=== PATIENT | female | born 1985 | race Caucasian/White ===

== ENCOUNTER → 2021-12-24 14:49 | Outpatient (BNVA) | payer MEDICAID, SELFPAY | PROVIDERS: Family Provider Nurse Practitioner Family; PCP Nurse Practitioner Family; Visit Provider Student in an Organized Health Care Education/Training Program | DX: M79.641 Pain in right hand (principal); R22.31 Localized swelling, mass and lump, right upper limb; M65.331 Trigger finger, right middle finger | CPT/HCPCS: 20600; 73130; 99203; J3301; J3490 ==

== ENCOUNTER 2025-04-17 10:15 | Emergency (ER) | payer MEDICAID, SELFPAY ==
--- NOTE | 2025-04-17 10:19 | CT_ITS ---
WS: [id number] CT HEAD NONCONTRAST HISTORY: Sudden onset headache TECHNIQUE: Contiguous axial imaging performed through the brain. Bone and soft tissue windows. Sagittal and coronal reformats reviewed. All CT scans at [facility] use at least one of these dose optimization techniques: automated exposure control; mA and/or kV adjustment per patient size (includes targeted exams where dose is matched to clinical indication); or iterative reconstruction. DLP: 1083.38 mGy.cm COMPARISON: None available. No acute intracranial hemorrhage, midline shift or mass effect. No significant atrophy. Mild ectopia of the cerebellar tonsils. There is mild crowding at the foramen magnum but no Chiari malformation. No infarct or edema. Ventricles: Normal size with no hydrocephalus. Paranasal sinuses: As visualized are clear. Mastoid air cells: Well pneumatized. Calvarium and scalp: Skull is intact with no soft tissue edema or swelling. CT/CT head wo con* [id number] IMPRESSION: 1. No acute intracranial hemorrhage or edema. 2. No prior infarct. 3. Mild ectopia of the cerebellar tonsils but no Chiari malformation.
[2025-04-17 10:20] VITALS: BP 120/73; PULSE 76; RESP 16; TEMP 37; O2SAT 98
--- NOTE | 2025-04-17 10:29 | W.ED.HA ---
HPI - Headache General: Chief Complaint: Headache Stated Complaint: Sudden onset Headache Time Seen by Provider: 04/17/25 10:19 Source: patient and EMS Mode of arrival: EMS Limitations: no limitations History of Present Illness: 39-year-old female states she has history of headaches in the past she states that 30 minutes ago she was at she started having a headache felt like her previous migraines she states she had felt lightheaded felt like she is going to pass out and had some dizziness. She denies any slurred speech denies any focal weaknesses headaches currently a 7 out of 10. Worse with lights Related Data Home Medications ?Medication ?Instructions ?Recorded ?Confirmed atorvastatin 20 mg tablet (Lipitor) 20 mg PO DAILY 03/11/25 03/11/25 baclofen 10 mg tablet 10 mg PO TID PRN 03/11/25 03/11/25 celecoxib 100 mg capsule 100 mg PO BID 03/11/25 03/11/25 cetirizine 10 mg tablet (All Day 10 mg PO DAILY PRN 03/11/25 03/11/25 Allergy (cetirizine)) dicyclomine 20 mg tablet 20 mg PO TID 03/11/25 03/11/25 famotidine 20 mg tablet 20 mg PO BID 03/11/25 03/11/25 fluticasone furoate 50 inhalation DAILY 03/11/25 03/11/25 mcg/actuation blister powder for inhalation gabapentin 600 mg tablet 600 mg PO TID 03/11/25 03/11/25 hydroxyzine pamoate 25 mg capsule 25 mg PO TID PRN 03/11/25 03/11/25 (Vistaril) lamotrigine 100 mg tablet,extended 100 mg PO DAILY PRN 03/11/25 03/11/25 release 24 hr norethindrone (contraceptive) 0.35 0.35 mg PO DAILY 03/11/25 03/11/25 mg tablet (Dee-BE) omeprazole 20 mg capsule,delayed 20 mg PO BID 03/11/25 03/11/25 release ondansetron HCl 4 mg tablet 4 mg PO Q8H 03/11/25 03/11/25 semaglutide 1 mg/dose (4 mg/3 mL) mg SUBCUT .Weekly 03/11/25 03/11/25 subcutaneous pen injector (Ozempic) topiramate 50 mg tablet 50 mg PO BID 03/11/25 03/11/25 Allergies Allergy/AdvReac Type Severity Reaction Status Date / Time codeine Allergy Mild VOMITING Verified 03/11/25 16:03 nitrofurantoin (From Allergy Mild BLISTERS Verified 03/11/25 16:03 Macrobid) Penicillins Allergy Mild THRUSH Verified 03/11/25 16:03 trazodone Allergy Mild MIGRAINES Verified 03/11/25 16:03 Review of Systems Neuro: Reports: headache(s) PFS ED PFSH: Medical History (Updated 04/17/25 @ 11:24 by Jose Saeed MD) Psychiatric care Trigger finger, right middle finger Finger mass, right Physical Exam Const: COMMON NORMALS: patient oriented x3 HENMT: COMMON NORMALS: normocephalic and atraumatic HEAD & SCALP: normocephalic and atraumatic Eye: COMMON NORMALS: Equal, round and reactive pupils present and EOMs intact bilaterally PUPIL: Yes Equal, round and reactive pupils present Neck/C-Spine: COMMON NORMALS: full ROM and supple Chest: COMMONS NORMALS: normal inspection of the chest and normal palpation of entire chest wall Resp: COMMON NORMALS: normal respiratory effort, No retractions, No use of accessory muscles and clear to auscultation bilaterally AUSCULTATION: clear to auscultation bilaterally Cardio: COMMON NORMALS: regular rate, regular rhythm and No murmurs present (Cardio) RATE: regular rate RHYTHM: regular rhythm GI: COMMON NORMALS: Normal to inspection, nondistended, normoactive bowel sounds present, Soft to palpation, non-tender and no masses PALPATION: Yes Soft to palpation Extremity: COMMON NORMALS: normal to inspection and full ROM Neuro: COMMON NORMALS: patient oriented x3, moves all extremities and no focal motor deficits Psych: COMMON NORMALS: mental status grossly normal, Normal thought process present and cooperative THOUGHT PROCESS: Normal thought process present Skin: COMMON NORMALS: no rashes or lesions noted and no wounds GENERAL SKIN EXAM: no rashes or lesions noted Course Vital Signs: Vital signs: Vital Signs Temperature 98.6 F 04/17/25 10:20 Pulse Rate 68 04/17/25 11:36 Respiratory Rate 16 04/17/25 11:36 Blood Pressure 109/68 04/17/25 11:36 Pulse Oximetry 100 04/17/25 11:36 Oxygen Delivery Me thod Room Air 04/17/25 10:20 MDM - Headache Medical Decision Making 39-year-old female presents here with a headache has history of migraine headaches. Differential includes CVA, intracerebral hemorrhage, migraine headache. Patient has no signs of CVA here she is ambulatory without difficulty no signs of posterior stroke. Head CT here showed no acute abnormality she has no signs of intracerebral hemorrhage her headache here is resolved along with her symptoms with Reglan Benadryl and Toradol. Likely a migraine. She is stable for discharge at this time follow-up PCP return if worsening. Lab Data Radiology Impressions Head CT 04/17/25 10:19 IMPRESSION: 1. No acute intracranial hemorrhage or edema. 2. No prior infarct. 3. Mild ectopia of the cerebellar tonsils but no Chiari malformation. All radiology interpretation(s) finalized by discharge Discharge Plan Discharge Patient Disposition: Home Clinical Impression: Headache Condition: Stable Prescriptions: No Action topiramate 50 mg tablet 50 mg PO BID gabapentin 600 mg tablet 600 mg PO TID atorvastatin [Lipitor] 20 mg tablet 20 mg PO DAILY cetirizine [All Day Allergy (cetirizine)] 10 mg tablet 10 mg PO DAILY PRN ondansetron HCl 4 mg tablet 4 mg PO Q8H famotidine 20 mg tablet 20 mg PO BID dicyclomine 20 mg tablet 20 mg PO TID baclofen 10 mg tablet 10 mg PO TID PRN omeprazole 20 mg capsule,delayed release(DR/EC) 20 mg PO BID norethindrone (contraceptive) [Dee-BE] 0.35 mg tablet 0.35 mg PO DAILY celecoxib 100 mg capsule 100 mg PO BID hydroxyzine pamoate [Vistaril] 25 mg capsule 25 mg PO TID PRN lamotrigine 100 mg tablet extended release 24hr 100 mg PO DAILY PRN fluticasone furoate 50 mcg/actuation blister with device inhalation DAILY Ozempic 1 mg/dose (4 mg/3 mL) pen injector SUBCUT .Weekly Discharge Orders: Discharge ED (Routine); Ordered 04/17/25 Ordered By: Jose Saeed Referrals: Andrew Fields, ASSEMBLY MACHINE TENDER [Primary Care Provider, Family Practice] - 4-7 days Discharge Diet: Advance as tolerated Discharge Activity: Resume usual activity Patient Instructions: General Headache (ED) Print Language: Tongan Coding Level of Care Code ED [employer] Applier for Dalila Llamas
[2025-04-17] MEDS: diphenhydrAMINE 50 mg/mL SDV 1mL IVP (10:30)
[2025-04-17] MEDS: metoclopramide 5 mg/mL SDV 2 mL 10 MG IVP (10:33)
[2025-04-17 11:03] VITALS: BP 120/73; O2SAT 98
[2025-04-17 11:36] VITALS: BP 109/68; PULSE 68; RESP 16; O2SAT 100
== END 2025-04-17 11:37 | disposition home or self-care (01) ==
PROVIDERS: Emergency Provider Emergency Medicine; PCP Nurse Practitioner Family
DX: R51.9 Headache, unspecified (principal)
CPT/HCPCS: 70450; 96374; 96375; 99285; J1200; J1885; J2765; J7030

== ENCOUNTER 2025-05-07 16:32 | Emergency (ER) | payer MEDICAID, SELFPAY ==
--- OUTSIDE RECORDS SUMMARY | 2023-11-17 10:00 | XMS_ITS ---
Author Organization [facility] Address [address] [place] [address] Care Team Providers Care Maintenance Painter Apprentice Name Role Phone ( [facility] ), PHYSICIAN NOT IDENTIFIED Primary Care Provider Unavailable Milan Chavez Unavailable [phone] DR. Iliana Acuña Unavailable [phone] REASON FOR VISIT PT has abcess in mouth was previously seen by medical and medical thinks it is caused by dental Social History Sex Assigned At : Social History Observation Description Sex Assigned At Female Encounters Encounter Location Date Provider Diagnosis (Do Not Use) [facility] [address] [facility] [place] [address] 11/17/2023 Iliana Acuña Plan Of Treatment No Information Progress Notes * Bozena BRYANTTrippB:[birth year] (39 yo F)Acc No.[id number]:11/17/2023 Patient: Jacquie Godfrey Provider: Amina Acuña DDS :1985 A ge:38 Y S ex:Female Date:11/17/2023 Address:[address] [facility] Pcp:PHYSICIAN NOT IDENTIFIED ( [facility] ) Subjective: * Chief Complaints: * P T has abcess in mouth was previously seen by medical and medical thinks it is caused by dental * Electronic signature of DR. Iliana Acuña on 05/07/2025 at 04:36 PM FOUNTAIN SUPERVISOR Sign off status: Pending * Provider: Amina Acuña DDS Date: 0 11/17/2023 Generated for Vanita irizarry/Félix/Aime on: 1 04:36 PM FOUNTAIN SUPERVISOR
--- OUTSIDE RECORDS SUMMARY | 2023-11-23 09:30 | XMS_ITS ---
Author Organization [facility] Address [address] [place] [address] Care Team Providers Care Consumer Sales Representative Name Role Phone ( [facility] ), PHYSICIAN NOT IDENTIFIED Primary Care Provider Unavailable Milan Chavez Unavailable [phone] DR. Iliana Acuña Unavailable [phone] REASON FOR VISIT PT has abcess in mouth was previously seen by medical and medical thinks it is caused by dental Social History Sex Assigned At : Social History Observation Description Sex Assigned At Female Encounters Encounter Location Date Provider Diagnosis (Do Not Use) [facility] [address] [address] 11/23/2023 Iliana Acuña Plan Of Treatment No Information Progress Notes * Bozena BRYANTTrippB:[birth year] (39 yo F)Acc No.[id number]:11/23/2023 Patient: Jacquie Godfrey Provider: Amina Acuña DDS :1985 A ge:38 Y S ex:Female Date:11/23/2023 Address:[address] [facility] Pcp:PHYSICIAN NOT IDENTIFIED ( [facility] ) Subjective: * Chief Complaints: * P T has abcess in mouth was previously seen by medical and medical thinks it is caused by dental Billing Information: * Procedure Codes: * Electronic signature of DR. Iliana Acuña on 05/07/2025 at 04:35 PM BREAST TRIMMER Sign off status: Pending * Provider: Amina Acuña DDS Date: 0 11/23/2023 Generated for Vanita irizarry/Félix/Aime on: 1 04:35 PM BREAST TRIMMER
--- OUTSIDE RECORDS SUMMARY | 2024-10-19 06:30 | XMS_ITS ---
Author Organization [facility] Address [address] [place] [address] Care Team Providers Care Proposal Consultant Name Role Phone ( [facility] ), PHYSICIAN NOT IDENTIFIED Primary Care Provider Unavailable Milan Chavez Unavailable [phone] Ronny Giron Unavailable [phone] REASON FOR VISIT X/Ref/ family emgy Social History Sex Assigned At : Social History Observation Description Sex Assigned At Female Encounters Encounter Location Date Provider Diagnosis [facility] [address] [place] [address] 10/19/2024 Ronny Giron Plan Of Treatment No Information Progress Notes * MANNYBozenaTrippB:[birth year] (39 yo F)Acc No.[id number]:10/19/2024 Patient: Jacquie Godfrey Provider: Vamshi Giron DDS :1985 A ge:39 Y S ex:Female Date:10/19/2024 Address:[address] [facility] Pcp:PHYSICIAN NOT IDENTIFIED ( [facility] ) Subjective: * Chief Complaints: * X /Ref/ family emgy Billing Information: * Procedure Codes: * Electronic signature of Mckinley Giron on 05/07/2025 at 04:36 PM SEISMOGRAPH CHIEF Sign off status: Pending * Provider: Vamshi Giron DDS Date: 0 10/19/2024 Generated for Printi ng/Faxing/eTransmitting on: 1 04:36 PM SEISMOGRAPH CHIEF
--- OUTSIDE RECORDS SUMMARY | 2024-12-20 02:30 | XMS_ITS ---
Author Organization [facility] Address [address] [place] [address] Care Team Providers Care Silk Brusher Name Role Phone ( [facility] ), PHYSICIAN NOT IDENTIFIED Primary Care Provider Unavailable Milan Chavez Unavailable [phone] Ronny Giron Unavailable [phone] REASON FOR VISIT ext - & 29/IV/ sick w fever Social History Sex Assigned At : Social History Observation Description Sex Assigned At Female Encounters Encounter Location Date Provider Diagnosis [facility] [address] [place] [address] 12/20/2024 Ronny Giron Plan Of Treatment No Information Progress Notes * Melina BRYANTB:[birth year] (39 yo F)Acc No.[id number]:12/20/2024 Patient: Jacquie Godfrey Provider: Vamshi Giron DDS :1985 A ge:39 Y S ex:Female Date:12/20/2024 Address:[address] Pcp:PHYSICIAN NOT IDENTIFIED ( [facility] ) Subjective: * Chief Complaints: * e xt 21-27 & 29/IV/ sick w fever * Electronic signature of Mckinley Giron on 05/07/2025 at 04:36 PM RUBBER COMPOUNDER SUPERVISOR Sign off status: Pending * Provider: Vamshi Giron DDS Date: 0 12/20/2024 Generated for Vanita irizarry/Félix/Maruitting on: 1 04:36 PM RUBBER COMPOUNDER SUPERVISOR
--- OUTSIDE RECORDS SUMMARY | 2025-01-17 10:00 | XMS_ITS ---
Author Organization [facility] Address [address] [place] [address] Care Team Providers Care Route Sales Delivery Drivers Supervisor Name Role Phone ( [facility] ), PHYSICIAN NOT IDENTIFIED Primary Care Provider Unavailable Milan Chavez Unavailable [phone] Ronny Giron Unavailable [phone] REASON FOR VISIT Pre-op check to make sure that recent COVID diagnosis has not hindered sedation requirements - Diagnosed 12/20/24 - R/S due to 's work schedule Social History Sex Assigned At : Social History Observation Description Sex Assigned At Female Encounters Encounter Location Date Provider Diagnosis 18 [facility] [address] [place] [address] 01/17/2025 Ronny Giron Plan Of Treatment No Information Progress Notes * Melina BRYANTB:[birth year] (39 yo F)Acc No.[id number]:01/17/2025 Patient: Jacquie Godfrey Provider: Vamshi Giron DDS :1985 A ge:39 Y S ex:Female Date:01/17/2025 Address:[address] [facility] Pcp:PHYSICIAN NOT IDENTIFIED ( [facility] ) Subjective: * Chief Complaints: * P re-op check to make sure that recent COVID diagnosis has not hindered sedation requirements - Diagnosed 12/20/24 - R/S due to 's work schedule * Electronic signature of Mckinley Giron on 05/07/2025 at 04:37 PM MAPPING TECHNICIAN Sign off status: Pending * Provider: Vamshi Giron DDS Date: 0 01/17/2025 Generated for Vanita Daley/Aime on: 1 04:37 PM MAPPING TECHNICIAN
--- OUTSIDE RECORDS SUMMARY | 2025-01-22 04:00 | XMS_ITS ---
Author Organization [facility] Address [address] [place] [address] Care Team Providers Care Silver Solution Mixer Name Role Phone ( [facility] ), PHYSICIAN NOT IDENTIFIED Primary Care Provider Unavailable Milan Chavez Unavailable [phone] Ronny Giron Unavailable [phone] REASON FOR VISIT 21,22,23,24,25,26,27,29with IV - R/S due to 's work schedule Social History Sex Assigned At : Social History Observation Description Sex Assigned At Female Encounters Encounter Location Date Provider Diagnosis 18[facility] [address] [place] [address] 01/22/2025 Ronny Giron Plan Of Treatment No Information Progress Notes * Bozena BRYANTaDOB:[birth year] (39 yo F)Acc No.[id number]:01/22/2025 Patient: Bozena Godfreya Provider: Vamshi Giron DDS :1985 A ge:39 Y S ex:Female Date:01/22/2025 Address:[address] [facility] Pcp:PHYSICIAN NOT IDENTIFIED ( [facility] ) Subjective: * Chief Complaints: * 2 1,22,23,24,25,26,27,29with IV - R/S due to 's work schedule * Electronic signature of Mckinley Giron on 05/07/2025 at 04:35 PM SOAP DRIER TENDER Sign off status: Pending * Provider: Vamshi Giron DDS Date: 0 01/22/2025 Generated for Vanita irizarry/Félix/Aime on: 1 04:35 PM SOAP DRIER TENDER
--- NOTE | 2025-05-07 16:19 | XRR_ITS ---
PROCEDURE INFORMATION: Exam: XR Left Knee Exam date and time: 05/07/2025 4:36 PM Age: 39 years old Clinical indication: Left knee pain TECHNIQUE: Imaging protocol: Radiologic exam of the left knee. Views: 3 views. COMPARISON: No relevant prior studies available. FINDINGS: Bones/joints: Small ossific fragment adjacent to the medial femoral condyle. Normal alignment. Patellar alignment appears appropriate on the provided views. No large joint effusion. Prior ligament reconstruction. Soft tissues: Normal. XR/XR knee LT 3V* [id number] IMPRESSION: 1. Patellar alignment appears appropriate on the provided views. 2. Small ossific fragment adjacent to the medial femoral condyle, age indeterminate and possibly related to prior injury or surgery.
[2025-05-07 16:33] VITALS: BP 127/74; PULSE 99; RESP 18; TEMP 36.6; O2SAT 98; BMI 30.1
--- OUTSIDE RECORDS SUMMARY | 2025-05-07 16:35 | XMS_ITS | Clinical Summary ---
Author Organization [facility] Address [address] Beard: Epic Prelude ADT [place] [address] Care Team Providers Care Gang Supervisor Pipe Lines Name Role Phone Tiffani Mcneill DO Primary Care Provider Allergies Active Allergy Reactions Criticality Noted Date Comments Codeine Nausea and Vomiting Low 03/21/2008 Nitrofurantoin Monohyd/M-Cryst Rash Low 03/21/2008 Olanzapine Other (See Comments),Rash Low 01/17/2024 Welts on legs Penicillins Other (See Comments) Low 03/21/2008 Says got thrush Trazodone Headache Low 03/21/2008 Medications diphenoxylate-atr opine 2.5 mg-0.025 mg tablet Take 1 Tablet by mouth every 6 hours. 024 Active ergocalciferol (VITAMIN D2) 50,000 unit capsule Take 50,000 Units by mouth. Active meclizine (ANTIVERT) 25 mg tablet Take 25 mg by mouth 3 times daily as needed for Dizziness. Active atorvastatin (LIPITOR) 20 mg tabletIndications :Mixed hyperlipidemia Take 1 Tablet (20 mg) by mouth daily. 100 Tablet 3 025 Active semaglutide (Ozempic) 1 mg/dose (4 mg/3 mL) Pen InjectorIndicatio ns:Type 2 diabetes mellitus with hyperglycemia, without long-term current use of insulin ([facility]) Inject 1 mg by subcutaneous injection every 7 days. 9 mL 3 025 Active Procto-Med HC 2.5 % cream with perineal applicator Insert by rectum 2 times daily as needed for Hemorrhoids. 28 Gram 1 025 Active levocetirizine (XYZAL) 5 mg tabletIndications :Allergic rhinitis, unspecified seasonality, unspecified trigger Take 1 Tablet (5 mg) by mouth late in the day. 30 Tablet 3 025 Active omeprazole (PriLOSEC) 20 mg Capsule, Delayed Release(E.C.) TAKE ONE CAPSULE BY MOUTH TWICE DAILY 180 Capsule 3 025 Active famotidine (PEPCID) 20 mg tablet TAKE ONE TABLET BY MOUTH TWICE DAILY 180 Tablet 3 025 Active hydrOXYzine HCL (ATARAX) 50 mg tabletIndications :Generalized anxiety disorder with panic attacks Take 1 Tablet (50 mg) by mouth 3 times daily as needed for Anxiety. 90 Tablet 2 025 Active dicyclomine (BENTYL) 20 mg tabletIndications :Irritable bowel syndrome, unspecified type Take 1 Tablet (20 mg) by mouth 4 times daily before meals and at bedtime. 120 Tablet 4 025 Active baclofen (LIORESAL) 10 mg tabletIndications :Trigeminal neuralgia of left side of face Take 1 Tablet (10 mg) by mouth 3 times daily as needed for Pain. 90 Tablet 3 025 Active ondansetron (ZOFRAN ODT) 4 mg Tablet, Rapid DissolveIndicatio ns:Nausea Take 1 Tablet (4 mg) by mouth every 8 hours as needed for Nausea/Emesis. Dissolve tablet on top of tongue, then swallow with saliva. 30 Tablet 1 025 Active lamoTRIgine (LaMICtal XR) 200 mg Extended Release 24 hour tabletIndications :Trigeminal neuralgia of left side of face Take 1 Tablet (200 mg) by mouth daily. 30 Tablet 3 025 Active albuterol sulfate 90 mcg/Actuation inhalerIndication s:Mild intermittent reactive airway disease without complication Take 2 Puffs by inhalation every 6 hours as needed for Shortness of Breath. 8.5 Gram 11 025 Active norethindrone, Contraceptive, 0.35 mg Tablet TAKE ONE TABLET BY MOUTH DAILY 28 Tablet 3 025 Active DULoxetine (CYMBALTA) 60 mg Capsule, Delayed Release(E.C.) TAKE ONE (1) CAPSULE BY MOUTH TWICE A DAY 60 Capsule 3 Active celecoxib (CeleBREX) 100 mg capsule Take 1 Capsule (100 mg) by mouth 2 times daily. 60 Capsule 3 Active topiramate (Topamax) 50 mg tablet Take 1 Tablet (50 mg) by mouth daily. 30 Tablet 4 Active gabapentin (NEURONTIN) 600 mg tablet TAKE ONE TABLET BY MOUTH THREE TIMES DAILY 90 Tablet 3 Active dapagliflozin propanediol (Farxiga) 5 mg Tablet TAKE 1 TABLET BY MOUTH DAILY 100 Tablet 3 025 Active gabapentin (NEURONTIN) 600 mg tablet Take 600 mg by mouth every 8 hours. 2024 Discontinued Farxiga 5 mg Tablet TAKE ONE TABLET BY MOUTH DAILY 30 Tablet 2 025 2024 Discontinued Active Problems Problem Noted Date Diagnosed Date Memory impairment 03/12/2025 Muscle twitching 03/12/2025 Reactive airway disease 03/12/2025 Warts of foot 03/12/2025 Other fatigue 03/12/2025 Trigeminal neuralgia of left side of face 2024 Anxiety 12/19/2024 Bipolar 1 disorder 12/19/2024 Fibromyalgia 12/19/2024 Insomnia 12/19/2024 Panic attacks 12/19/2024 Restless leg syndrome 12/19/2024 Snores 12/19/2024 Non-alcoholic fatty liver disease 07/02/2024 Type II diabetes mellitus 06/21/2024 Tear of medial meniscus of knee 08/26/2022 Chondromalacia of left patella 03/24/2020 Overview (12/19/2024): Added automatically from request for surgery Carpal tunnel syndrome, bilateral 03/04/2020 GERD (gastroesophageal reflux disease) 2 IUD complication 05/14/2010 Carpal tunnel syndrome 01/21/2010 Coccyx pain 01/16/2010 Sciatica 01/16/2010 MTHFR Mutation: Compound Heterozygote 03/28/2008 Depression with anxiety 03/21/2008 Resolved Problems Problem Noted Date Diagnosed Date Resolved Date Supervision of normal first 03/21/2008 11/21/2008 Encounters Date Type Department Care Team Description 05/07/2025 External Device Data STL ABSTRACTION Provider, Abstract 05/07/2025 Refill [facility] [address] [facility] [place] [address] Blue, August, INTAKE ASSESSOR 04/23/2025 External Device Data STL ABSTRACTION Provider, Abstract 04/23/2025 Telephone [facility] [address] [facility] [place] [address] Tiffani Mcneill, DO Medication Assistance 04/22/2025 Refill [facility] [address] [place] [address] Blue, August, INTAKE ASSESSOR 04/02/2025 External Device Data STL ABSTRACTION Provider, Abstract 04/01/2025 Orders Only [place] [address] [place] [address] August, INTAKE ASSESSOR Chronic midline low back pain without sciatica (Primary Dx) 03/30/2025 Refill [facility] [address] [facility] [place] [address] Blue, August, INTAKE ASSESSOR 03/22/2025 Orders Only [facility] [address] [facility] [place] [address] August, INTAKE ASSESSOR 03/19/2025 External Device Data STL ABSTRACTION Provider, Abstract 03/19/2025 External Device Data STL ABSTRACTION Provider, Abstract 03/13/2025 Results Follow-Up [facility] [address] [facility] [place] [address] Domenico Dias, INTAKE ASSESSOR CBC WITH DIFFERENTIAL, COMPREHENSIVE METABOLIC PANEL, PTT, Additional followed-up results: 2 03/13/2025 Telephone [facility] [address] [facility] [place] [address] Tiffani Mcneill, DO Paperwork 03/12/2025 2:40 PM WAX PATTERN REPAIRER Office Visit [facility] [address] [place] [address] Domenico Dias, INTAKE ASSESSOR Preoperative clearance (Primary Dx); Trigeminal neuralgia of left side of face; Type 2 diabetes mellitus with hyperglycemia, without long-term current use of insulin ([facility]); Memory impairment; Muscle twitching; Snores; Other fatigue; Screening mammography declined; Warts of foot; Mild intermittent reactive airway disease without complication 03/06/2025 External Device Data STL ABSTRACTION Provider, Abstract 03/05/2025 External Device Data STL ABSTRACTION Provider, Abstract 02/28/2025 2:40 PM CDT Office Visit [facility] [address] [place] [address] [place], INTAKE ASSESSOR Trigeminal neuralgia of left side of face (Primary Dx); Chest pain, unspecified type; TMJ (temporomandibular joint syndrome); Nausea; Generalized anxiety disorder with panic attacks 02/27/2025 1:40 PM CDT Office Visit [facility] [address] [place] [address] Domenico Dias, INTAKE ASSESSOR Trigeminal neuralgia of left side of face (Primary Dx) 02/27/2025 Nurse Triage [facility] [address] [place] [address] [place], INTAKE ASSESSOR 02/27/2025 External Device Data STL ABSTRACTION Provider, Abstract 02/26/2025 Orders Only [facility] [address] [place] [address] August, INTAKE ASSESSOR Irritable bowel syndrome, unspecified type (Primary Dx) 02/21/2025 Orders Only [facility] [address] [place] [address] [place], INTAKE ASSESSOR Generalized anxiety disorder with panic attacks (Primary Dx) 02/21/2025 Refill [facility] [address] [place] [address] Blue, August, INTAKE ASSESSOR 02/19/2025 External Device Data STL ABSTRACTION Provider, Abstract 02/19/2025 External Device Data STL ABSTRACTION Provider, Abstract 02/12/2025 Results Follow-Up [facility] [address] [place] [address] August, INTAKE ASSESSOR XR KNEE 3 VW LEFT 02/11/2025 3:20 PM CDT - 02/11/2025 11:59 PM CDT Hospital Encounter [facility] [address] [place] [address] August, INTAKE ASSESSOR Discharge Disposition: Home or Self Care 02/11/2025 1:20 PM CDT Office Visit [facility] [address] [place] [address] August, INTAKE ASSESSOR Bilateral hearing loss, unspecified hearing loss type (Primary Dx); Allergic rhinitis, unspecified seasonality, unspecified trigger; Chronic pain of left knee; Chronic left shoulder pain; Peripheral neuropathy associated with diabetes mellitus ([facility]) 02/06/2025 Orders Only [facility] [address] [place] [address] August, INTAKE ASSESSOR 02/05/2025 Orders Only [facility] [address] [place] [address] August, INTAKE ASSESSOR Chronic midline low back pain without sciatica (Primary Dx) from Last 3 Months Immunizations Immunization Administration Dates Next Due (ADACEL/BOOSTRIX)(10 YR UP) TDAP VACCINE, 0.5ML, IM 10/26/2013 (GARDASIL)(9-45 YRS) HUMAN PAPILLOMAVIRUS VACCINE, TYPES 6, 11, 16, 18, QUADRIVALENT (4VHPV), 3 DOSE, IM 12/03/2008 (M-M-R II/PRIORIX)(12 MO UP) MEASLES, MUMPS AND RUBELLA VIRUS VACCINE, 0.5 ML IM/SUBCUT 10/31/1987 (TDVAX)(7 YRS UP) TETANUS AN D DIPHTHERIA TOXOIDS, ADSORBED (2 LF OF TETANUS TOXOID AND 2 LF OF DIPHTHERIA TOXOID), 0.5ML (PF), IM 03/17/1999 Dt Dtp Dtap Vaccine 11/23/1988, 8,10/01/1986,11/27,10/02/1985 HIB, Unspecified Formulation 12/03/1986 HPV Vaccine Patient Supplied 01/27/2010 IPV/OPV 11/23/1988, 8,11/27/1985,09/27 Influenza Vaccine Split 3+ Yrs IM 03/21/2008 Family History Medical History Relation Name Comments Hypertension Father Cancer Maternal Grandmother Other Mother hx of pneumotho rax Breast Cancer Other 1 m cousin Cancer Other 2 m uncle liver Heart Disease Paternal Grandmother Healthy Sister Colon Cancer Neg Hx Relation Name Status Comments Father Alive Maternal Grandfather Maternal Grandmother Mother Alive Other 1 m cousin Alive Other 2 m uncle Alive Paternal Grandfather Paternal Grandmother Sister Alive Social History Tobacco Use Types Packs/Day Years Used Date Smoking Tobacco: Every Day Cigarettes Passive Smoke Exposure: Current Smokeless Tobacco: Never Tobacco Cessation:Ready to Q uit: No; Counseling Given: Yes Alcohol Use Standard Drinks/Week Comments No 0 (1 standard drink = 0.6 oz pur e alcohol) Comments Unknown Sex and Gender Information Value Date Recorded Sex Assigned at Not on file Legal Sex Female 9:16 AM WAX PATTERN REPAIRER Gender Identity Not on file Sexual Orientation Not on file Last Filed Vital Signs Vital Sign Reading Time Taken Comments Blood Pressure 128/72 03/12/2025 2:37 PM WAX PATTERN REPAIRER Pulse 82 03/12/2025 2:37 PM WAX PATTERN REPAIRER Temperature 37.1 C (98.8 F) 03/12/2025 2:37 PM WAX PATTERN REPAIRER Respiratory Rate 18 03/12/2025 2:37 PM WAX PATTERN REPAIRER Oxygen Saturation 98% 03/12/2025 2:37 PM WAX PATTERN REPAIRER Inhaled Oxygen Concentration - - Weight 83.2 kg (183 lb 6.4 oz) 03/12/2025 2:37 P M WAX PATTERN REPAIRER Height 165.1 cm (5' 5 ) 03/12/2025 2:37 PM WAX PATTERN REPAIRER Body Mass Index 30.52 03/12/2025 2:37 PM WAX PATTERN REPAIRER Plan of Treatment Upcoming Encounters Date Type Department Care Team (Late st Contact Info) Description 05/30/2025 3:00 PM WAX PATTERN REPAIRER Office Visit [facility] [place] [address] [facility] [place] [address] Blue, August, INTAKE ASSESSOR [address] [place] [address] 07/16/2025 11:30 AM CDT Appointment [facility] [address] [place] [address] Hector Trent MD [address] [place] [address] Health Maintenance Due Date Last Done Comments HEPATITIS B VACCINES (1 of 3 - 19+ 3-dose series) 2002 Preventative Visit-Managed Medicaid 2002 HPV/Cotest (21-29) 2004 HPV VACCINES (3 - 3-dose series) 04/21/2010 01/28/20 10, 12/03/2008 HPV/Cotest (30-65) 2013 BREAST CANCER SCREENING 2023 DTAP/TDAP/TD VACCINES (7 - T d or Tdap) 10/27/2023 10/26/2013, 03/17/1999, 11/23/1988, Additional history exists INFLUENZA VACCINE (#1) 2024 03/21/2008 DIABETES ANNUAL RETINAL EXAM 02/07/202506/2023, 02/08/2024, 02/08/2024, Additional history exists DIABETES HBA1C Q 6 MONTHS 06/20/20252024, 06/21/2024, 02/23/2021 LDL CHOLESTEROL ANNUAL 12/18/2025 12/18/2024 DIABETES ANNUAL FOOT EXAM 02/11/2026 02/11/2025 DIABETES MICROALBUMIN ANNUAL SCREEN 03/12/2026 03/12/2025 CERVICAL CANCER SCREENING 06/21/2027 PAP SMEAR 06/21/2027 06/21/2024, 03/20/2009 Procedures Procedure Name Priority Date/Time Associated Diagnosis Comments EKG 12-LEAD Routine 03/15/2025 3:49 PM WAX PATTERN REPAIRER MICROALBUMIN/CREATININ E RATIO, RANDOM UR Routine 03/12/2025 3:38 PM WAX PATTERN REPAIRER Type 2 diabetes mellitus with hyperglycemia, without long-term current use of insulin ([facility]) PROTIME-INR Routine 03/12/2025 3:32 PM WAX PATTERN REPAIRER Preoperative clearance PTT Routine 03/12/2025 3:32 PM WAX PATTERN REPAIRER Preoperative clearance COMPREHENSIVE METABOLIC PANEL Routine 03/12/2025 3:32 PM WAX PATTERN REPAIRER Preoperative clearance CBC WITH DIFFERENTIAL Routine 03/12/2025 3:32 PM WAX PATTERN REPAIRER Preoperative clearance XR KNEE 3 VW LEFT Routine 02/11/2025 3:3 4 PM CDT Chronic pain of left knee LIPID PANEL Routine 12/18/2024 2:27 PM CDT Type 2 diabetes mellitus with hyperglycemia, without long-term current use of insulin ([facility]) HEMOGLOBIN A1C Routine 12/18/2024 2:27 PM CDT Type 2 diabetes mellitus with hyperglycemia, without long-term current use of insulin ([facility]) from Last 3 Months or Most Recently Relevant to Health Maintenance Results * EKG 12-LEAD (03/15/2025 3:49 PM WAX PATTERN REPAIRER) August INTAKE ASSESSOR ECG ORDERABLES Final Result [facility] CLIA# [id number] [address] [place] [address] * MICROALBUMIN/CREATININE RATIO, RANDOM UR (03/12/2025 3:38 PM WAX PATTERN REPAIRER) CREATININE, URINE 101 20 - 275 mg/dL [facility] ALBUMIN, URINE 0.9 See Note: mg/dL [facility] Comment: Reference Range: Reference Range Not established ALB/CREAT RATIO, URINE 9 <30 mg/g creat [facility] Comment: The ADA defines abnormalities in albumin excretion as follows: Albuminuria Category Result (mg/g creatinine) Normal to Mildly increased <30 Moderately increased 30-299 Severely increased > OR = 300 The ADA recommends that at least two of three specimens collected within a 3-6 month period be abnormal before considering a patient to be within a diagnostic category. Test Performed at: [facility] [address] [place] [address] Moreno Sawyer MD Urine URINE SPECIMEN OBTAINED BY CLEAN CATCH PROCEDURE / Unknown 03/12/2025 3:38 PM WAX PATTERN REPAIRER 03/13/2025 5:48 AM WAX PATTERN REPAIRER Domenico Dias INTAKE ASSESSOR URINE ORDERABLES Final Res ult [facility] [phone] [facility] [address] [place] [address] * (ABNORMAL) CBC WITH DIFFERENTIAL (03/12/2025 3:32 PM WAX PATTERN REPAIRER) WBC 14.7(H) 3.8 - 10.8 Thousand/u L [facility] RBC 5.09 3.80 - 5.10 Million/uL [facility] HEMOGLOBIN 12.3 11.7 - 15.5 g/dL [facility] HEMATOCRIT 40.6 35.0 - 45.0 % [facility] MCV 79.8(L) 80.0 - 100.0 fL [facility] MCH 24.2(L) 27.0 - 33.0 pg [facility] MCHC 30.3(L) 32.0 - 36.0 g/dL [facility] Comment: For adults, a slight decrease in the calculated MCHC value (in the range of 30 to 32 g/dL) is most likely not clinically significant; however, it should be interpreted with caution in correlation with other red cell parameters and the patient's clinical condition. RDW 15.1(H) 11.0 - 15.0 % [facility] PLATELETS 345 140 - 400 Thousand/u L [facility] MPV 11.1 7.5 - 12.5 fL [facility] NEUTROPHIL ABSOLUTE 7,850(H) 1,500 - 7,800 cells/uL [facility] LYMPHOCYTE ABSOLUTE 5,821(H) 850 - 3,900 cells/uL [facility] MONOCYTE ABSOLUTE 647 200 - 950 cells/uL [facility] EOSINOPHIL ABSOLUTE 309 15 - 500 cells/uL [facility] BASOPHILS ABSOLUTE 74 0 - 200 cells/uL [facility] NEUTROPHIL 53.4 % [facility] LYMPHOCYTES 39.6 % [facility] MONOCYTE 4.4 % [facility] EOSINOPHILS 2.1 % [facility] BASOPHILS 0.5 % [facility] Comment: FASTING:UNKNOWN FASTING: UNKNOWN Test Performed at: [facility] [address] Moreno Sawyer MD Blood 03/12/2025 3:32 PM WAX PATTERN REPAIRER 03/12/2025 3:33 PM WAX PATTERN REPAIRER Domenico Dias [facility] HEMATOLOGY ORDERABLES Elina turner Result [facility] [phone] [address] * PTT (03/12/2025 3:32 PM WAX PATTERN REPAIRER) PTT 29 23 - 32 sec [facility] Comment: This test has not been validated for monitoring unfractionated heparin therapy. For testing that is validated for this type of therapy, please refer to the Heparin Anti-Xa assay (test code 00677). For additional information, please refer to http://education.[employer]/faq/FUT566 (This link is being provided for informational/educational purposes only.) Test Performed at: [facility] [address] [place] [phone] Moreno Sawyer MD Blood 03/12/2025 3:32 PM WAX PATTERN REPAIRER 03/12/2025 3:33 PM WAX PATTERN REPAIRER Domenico Dias [facility] HEMATOLOGY ORDERABLES Elina l Result Performing Organization Address [facility]/ZIP Co de Phone Number [facility] [phone] [facility] [address] [facility] [place] [address] * PROTIME-INR (03/12/2025 3:32 PM WAX PATTERN REPAIRER) INR 0.9 [facility] Comment: Reference Range 0.9-1.1 Moderate-intensity Warfarin Therapy 2.0-3.0 Higher-intensity Warfarin Therapy 3.0-4.0 PROTIME 9.8 9.0 - 11.5 sec [facility] Comment: For additional information, please refer to http://education.[employer]/faq/OCR079 (This link is being provided for informational/ educational purposes only.) FASTING:UNKNOWN FASTING: UNKNOWN Test Performed at: [facility] [address] [facility] CenterAqua[place] [address] Moreno Sawyer MD Blood 03/12/2025 3:32 PM WAX PATTERN REPAIRER 03/12/2025 3:33 PM WAX PATTERN REPAIRER Domenico Dias [facility] HEMATOLOGY ORDERABLES Elina l Result Performing Organization Address [facility]/ZIP Co de Phone Number [facility] [phone] [facility] [address] [place] [address] * (ABNORMAL) COMPREHENSIVE METABOLIC PANEL (03/12/2025 3:32 PM WAX PATTERN REPAIRER) GLUCOSE 104(H) 65 - 99 mg/dL [facility] Comment: Fasting reference interval For someone without known diabetes, a glucose value between 100 and 125 mg/dL is consistent with prediabetes and should be confirmed with a follow-up test. BUN 6(L) 7 - 25 mg/dL [facility] CREATININE 0.83 0.50 - 0.99 mg/dL [facility] GFR 91 > OR = 60 mL/min/1.7 3m2 [facility] BUN/CREAT RATIO 7 6 - 22 (calc) [facility] SODIUM 136 135 - 146 mmol/L [facility] POTASSIUM 3.9 3.5 - 5.3 mmol/L [facility] CHLORIDE 107 98 - 110 mmol/L [facility] CO2 22 20 - 32 mmol/L [facility] CALCIUM 9.4 8.6 - 10.2 mg/dL [facility] TOTAL PROTEIN 6.9 6.1 - 8.1 g/dL [facility] ALBUMIN 4.3 3.6 - 5.1 g/dL [facility] GLOBULIN 2.6 1.9 - 3.7 g/dL (calc) [facility] ALBUMIN/GLOBULIN RATIO 1.7 1.0 - 2.5 (calc) [facility] BILIRUBIN TOTAL 0.3 0.2 - 1.2 mg/dL [facility] ALKALINE PHOSPHATASE 84 31 - 125 U/L [facility] AST 13 10 - 30 U/L [facility] ALT 13 6 - 29 U/L [facility] Comment: FASTING:UNKNOWN FASTING: UNKNOWN Test Performed at: [facility] [address] Moreno Sawyer MD Blood 03/12/2025 3:32 PM WAX PATTERN REPAIRER 03/12/2025 3:33 PM WAX PATTERN REPAIRER us Domenico Dias INTAKE ASSESSOR CHEMISTRY ORDERABLES Final Result [facility] [phone] [facility] [id number] [place] [address] * XR KNEE 3 VW LEFT (02/11/2025 3:34 PM CDT) Anatomical Region Laterality Modality Lower Extremity Computed Radiogr aphy 02/11/2025 3:35 PM CDT Narrative 02/12/2025 7:06 AM CDT XR KNEE 3 VW LEFT 02/11/2025 3:34 PM Reason For Exam: See Diagnosis. Diagnosis: Chronic pain of left knee; Chronic pain of left knee. COMPARISON: None FINDINGS: Postsurgical changes of the femur trachea are noted. No acute fracture, subluxation, dislocation, or destructive osseous lesion is seen. Mild loss of joint space at the knee is noted. Procedure Note David Leiva MD - 02/12/2025 XR KNEE 3 VW LEFT 02/11/2025 3:34 PM Reason For Exam: See Diagnosis. Diagnosis: Chronic pain of left knee; Chronic pain of left knee. COMPARISON: None FINDINGS: Postsurgical changes of the femur trachea are noted. No acute fracture, subluxation, dislocation, or destructive osseous lesion is seen. Mild loss of joint space at the knee is noted. [facility] DIAGNOSTIC IMAGING ORDERABLES Fi nal Result * (ABNORMAL) HEMOGLOBIN A1C (12/18/2024 2:27 PM CDT) HEMOGLOBIN A1C 8.7(H) <5.7 % [facility] Comment: For someone without known diabetes, a hemoglobin A1c value of 6.5% or greater indicates that they may have diabetes and this should be confirmed with a follow-up test. For someone with known diabetes, a value <7% indicates that their diabetes is well controlled and a value greater than or equal to 7% indicates suboptimal control. A1c targets should be individualized based on duration of diabetes, age, comorbid conditions, and other considerations. Currently, no consensus exists regarding use of hemoglobin A1c for diagnosis of diabetes for children. ESTIMATED AVERAGE GLUCOSE (MG/DL) 203 mg/dL [facility] ESTIMATED AVERAGE GLUCOSE (MMOL/L) 11.2 mmol/L [facility] Comment: FASTING:UNKNOWN FASTING: UNKNOWN Test Performed at: [facility] [address] [place] [address] Moreno Sawyer MD Blood 12/18/2024 2:27 PM CDT 12/18/2024 2:28 PM CDT August Su [facility] CHEMISTRY ORDERABLES Final Resul t [facility] [phone] [facility] [address] [address] * (ABNORMAL) LIPID PANEL (12/18/2024 2:27 PM CDT) CHOLESTEROL 248(H) <200 mg/dL [facility] HDL 35(L) > OR = 50 mg/dL [facility] TRIGLYCERIDE 453(H) <150 mg/dL [facility] Comment: If a non-fasting specimen was collected, consider repeat triglyceride testing on a fasting specimen if clinically indicated. Jayy et al. J. of Clin. Lipidol. 2015;9:129-169. LDL CALCULATED mg/dL (calc) [facility] Comment: LDL cholesterol not calculated. Triglyceride levels greater than 400 mg/dL invalidate calculated LDL results. Reference range: <100 Desirable range <100 mg/dL for primary prevention; <70 mg/dL for patients with CHD or diabetic patients with > or = 2 CHD risk factors. LDL-C is now calculated using the Héctor-Duncan calculation, which is a validated novel method providing better accuracy than the Friedewald equation in the estimation of LDL-C. Héctor SS et al. SHANE. 2013;310(19): 3676-6868 (http://education.[employer]/faq/WKT610) CHOL/HDL RATIO 7.1(H) <5.0 (calc) [facility] NON-HDL CHOLESTEROL 213(H) <130 mg/dL (calc) [facility] Comment: For patients with diabetes plus 1 major ASCVD risk factor, treating to a non-HDL-C goal of <100 mg/dL (LDL-C of <70 mg/dL) is considered a therapeutic option. Test Performed at: [facility] [address] [address] Moreno Sawyer MD Blood 12/18/2024 2:27 PM CDT 12/18/2024 2:28 PM CDT August INTAKE ASSESSOR CHEMISTRY ORDERABLES Final Resul t [facility] [phone] [facility] [address] [place] [address] from Last 3 Months or Most Recently Relevant to Health Maintenance Insurance MEDICAID [place] Care Teams Gang Supervisor Pipe Lines Relationship Specialty Start Date End Date Tiffani Mcneill DO [address] [place] [address] PCP - General Family Practice 04/08/10
--- OUTSIDE RECORDS SUMMARY | 2025-05-07 16:35 | XMS_ITS | Encounter Summary ---
Author Organization [facility] Address [address] [place] [address] Phone Care Team Providers Care Sap Hana Developer Name Role Phone Darius Delgado Calista [facility] Primary Care Provider [phone] Eleanor Lugo [facility] Primary Care Provider [phone] Eleanor Lugo SCHOOL SECRETARY Unavailable [phone] Barrett Jamil MD Unavailable Leatha vailable William Guan SCHOOL SECRETARY Unavailable Zenobia Gonzalez AOP Unavailable Berta Blue [facility] Primary Care Provider [phone] Encounter Details Date Type Department Care Team (Late st Contact Info) Description 2022 Telephone [facility] [address] [address] Piper Sandra PA [address] [id number] Social History Tobacco Use Types Packs/Day Years Used Date Smoking Tobacco: Every Day Cigarettes 1 18 Smokeless Tobacco: Never Alcohol Use Standard Drinks/Week Comments Never 0 (1 standard drink = 0.6 oz pur e alcohol) Humiliation, Afraid, Rape, and Kick questionnair e Answer Date Recorded Within the last year, have y ou been afraid of your partner or ex-partner? No 2022 Within the last year, have y ou been humiliated or emotionally abused in other ways by your partner or ex-partner? No Within the last year, have y ou been kicked, hit, slapped, or otherwise physically hurt by your partner or ex-partner? No 2022 Within the last year, have y ou been raped or forced to have any kind of sexual activity by your partner or ex-partner? No 2022 AUDIT-C Answer Date Recorded Q1: How often do you have a drink containing alc ohol? Never 03/04/2020 Q2: How many drinks containi ng alcohol do you have on a typical day when you are drinking? Not asked 03/04/2020 Q3: How often do you have six or more drinks on one occasion? Never 03/04/2020 PHQ-2 Answer Date Recorded Patient Health Questionnaire-2 Score 2 2022 Comments No Sex and Gender Information Value Date Recorded Sex Assigned at Not on file Legal Sex Female 10:46 AM CDT Gender Identity Not on file Sexual Orientation Not on file documented as of this encounter Miscellaneous Notes * Telephone Encounter - LISSETTE Vallejo - 2022 9:49 AM SORTING LIVESTOCK WORKER Pt seen this morning and scheduled for scopes. ING LIVESTOCK WORKER * Telephone Encounter - Beatrice Larios - 2022 9:[address] report ING LIVESTOCK WORKER documented in this encounter Plan of Treatment Not on file documented as of this encounter Visit Diagnoses Not on filedocumented in this encounter Additional Health Concerns Infection Onset Date Last Indicated Resolved Time COVID-19 Rule-Out 07/13/2024 07/13/2024 07/13/2024 11:05 AM SORTING LIVESTOCK WORKER documented as of this encounter Care Teams Sap Hana Developer Relationship Specialty Start Date End Date Darius Delgado FNP [address] [facility] [place] [address] PCP - General Family Medicine 01/28/20 06/20/24 Eleanor Lugo FNP [address] [facility] [place] [address] PCP - General Family Medicine 06/21/24 01/13/25 Berta Blue FNP [address] [place] [address] PCP - General 01/14/25 Eleanor Lugo FNP [address] [facility] [place] [address] [facility] Med Onc Original Referring Provider Family Medicine 07/31/24 Barrett Jamil MD [address] [place] [address] Medical Oncologist Oncology 07/31/24 William Guan FNP [address] [address] Nurse Practitioner Oncology 07/31/24 Zenobia Gonzalez AOCNP [address] [address] Nurse Practitioner Oncology 07/31/24 documented as of this encounter
--- OUTSIDE RECORDS SUMMARY | 2025-05-07 16:35 | XMS_ITS | Encounter Summary ---
Author Organization [facility] Address [address] [place] [address] Phone Care Team Providers Care Slot Machine Key Person Name Role Phone Darius Delgado Calista [facility] Primary Care Provider Eleanor Lugo PRINT SHOP MANAGER Primary Care Provider [phone] Eleanor Lugo PRINT SHOP MANAGER Unavailable Barrett Jamil MD Unavailable Leatha vailable William Guan PRINT SHOP MANAGER Unavailable [phone] Zenobia Gonzalez AOP Unavailable [phone] Berta Blue PRINT SHOP MANAGER Primary Care Provider [phone] Reason for Visit * Reason Onset Date Comments speak with nurse regarding upcoming surgery 01/2020 Encounter Details Date Type Department Care Team (Late st Contact Info) Description 03/17/2020 Telephone [facility] [address] [id number] Andrew Thomas MD [address] [address] speak with nurse regarding upcoming surgery Social History Tobacco Use Types Packs/Day Years Used Date Smoking Tobacco: Every Day Cigarettes 1 18 Smokeless Tobacco: Never Alcohol Use Standard Drinks/Week Comments Never 0 (1 standard drink = 0.6 oz pur e alcohol) AUDIT-C Answer Date Recorded Q1: How often do you have a drink containing alc ohol? Never 03/04/2020 Q2: How many drinks containi ng alcohol do you have on a typical day when you are drinking? Not asked 03/04/2020 Q3: How often do you have six or more drinks on one occasion? Never 03/04/2020 Comments Unknown Sex and Gender Information Value Date Recorded Sex Assigned at Not on file Legal Sex Female 10:46 AM CDT Gender Identity Not on file Sexual Orientation Not on file documented as of this encounter Miscellaneous Notes * Telephone Encounter - Amelia Guevara - 03/24/2020 10:01 AM CST Patient calling to reschedule surgery. AL TEACHER * Telephone Encounter - Za Tena - 03/17/2020 3:27 PM CST Patient tested positive for COVID 03/14/20 in [place]. Her quarantine is over 03/23/20. Right now she just has sinus infection type symptoms. Runny nose, body aches, tired, no fever. She will call back when she is feeling better. AL TEACHER * Telephone Encounter - Nathalie Mccauley LPN - 03/17/2020 2:55 PM CST Routed to Venessa Tena/doctor of dental surgery AL TEACHER * Telephone Encounter - Kuldip Arango - 03/17/2020 8:40 AM CST Pt would like a call back from a nurse to discuss her upcoming surgery, she stated it is very important and no further information was given. AL TEACHER documented in this encounter Plan of Treatment Not on file documented as of this encounter Visit Diagnoses Not on filedocumented in this encounter Additional Health Concerns Infection Onset Date Last Indicated Resolved Time COVID-19 Rule-Out 07/13/2024 07/13/2024 07/13/2024 11:05 AM CHORAL TEACHER documented as of this encounter Care Teams Slot Machine Key Person Relationship Specialty Start Date End Date Darius Delgado, [facility] [address] [place] [address] PCP - General Family Medicine 01/28/20 06/20/24 Eleanor Lugo FNP [address] [facility] [place] [address] PCP - General Family Medicine 06/21/24 01/13/25August, [facility] [address] [facility] [place] [address] PCP - General 01/14/25 Eleanor Lugo FNP [address] [facility] [place] [address] [facility] Med Onc Original Referring Provider Family Medicine 07/31/24 Barrett Jamil MD [address] [facility] [place] [address] Medical Oncologist Oncology 07/31/24 William Guan PRINT SHOP MANAGER [address] [address] Nurse Practitioner Oncology 07/31/24 Zenobia Gonzalez AOCNP [address] [id number] Nurse Practitioner Oncology 07/31/24 documented as of this encounter
--- OUTSIDE RECORDS SUMMARY | 2025-05-07 16:35 | XMS_ITS | Encounter Summary ---
Author Organization [facility] Address [address] [place] [address] Phone Care Team Providers Care Equipment Maintenance Tech Name Role Phone Eleanor Lugo BROMINATION EQUIPMENT OPERATOR Unavailable Barrett Jamil MD Unavailable Leatha vailable William Guan BROMINATION EQUIPMENT OPERATOR Unavailable [phone] Zenobia Gonzalez [facility] Unavailable [phone] August BROMINATION EQUIPMENT OPERATOR Primary Care Provider [phone] Reason for Visit * Reason Comments Med Refill Encounter Details Date Type Department Care Team (Late st Contact Info) Description 04/13/2025 Refill [facility] [address] [place] [address] [facility] [address] [place] [address] Social History Tobacco Use Types Packs/Day Years Used Date Smoking Tobacco: Every Day Cigarettes 1 23.5 Started: 2004 Passive Smoke Exposure: Current Smokeless Tobacco: Never Comments:Started smoking at age 16 Alcohol Use Standard Drinks/Week Comments Never 0 (1 standard drink = 0.6 oz pur e alcohol) B1300 Health Literacy Answer Date Recor ded How often do you need to hav e someone help you when you read instructions, pamphlets, or other written material from your doctor or pharmacy? Sometimes 08/12/2024 [facility] Utilities Answer Date Recorded In the past 12 months has th e electric, gas, oil, or water [employer] threatened to shut off services in your home? No 08/12/2024 Humiliation, Afraid, Rape, and Kick questionnair e Answer Date Recorded Within the last year, have y ou been afraid of your partner or ex-partner? No 08/12/2024 Within the last year, have y ou been humiliated or emotionally abused in other ways by your partner or ex-partner? No Within the last year, have y ou been kicked, hit, slapped, or otherwise physically hurt by your partner or ex-partner? No 08/12/2024 Within the last year, have y ou been raped or forced to have any kind of sexual activity by your partner or ex-partner? No 08/12/2024 Social Connection and Isolation Panel Answer Date Recorded In a typical week, how many times do you talk on the phone with family, friends, or neighbors? Once a week 08/12/2024 How often do you get together with friends or re latives? Never 08/12/2024 How often do you attend restorationist or episcopalian serv ices? Never 08/12/2024 Do you belong to any clubs o r organizations such as restorationist groups, unions, fraternal or athletic groups, or school groups? No 08/12/2024 How often do you attend meet ings of the clubs or organizations you belong to? Never 08/12/2024 Are you , , di vorced, , never , or living with a partner? 08/12/2024 AUDIT-C Answer Date Recorded Q1: How often do you have a drink containing alcohol? Never 10/02/2024 Q2: How many drinks containi ng alcohol do you have on a typical day when you are drinking? Patient does not drink Q3: How often do you have si x or more drinks on one occasion? Never 10/02/2024 Overall Financial Resource Strain (CARDIA) Answe r Date Recorded How hard is it for you to pa y for the very basics like food, housing, medical care, and heating? Not very hard 08/12/2024 PHQ-2 Answer Date Recorded Patient Health Questionnaire-2 Score 0 10/03/2024 [facility] [place] of Occupat ional Health - Occupational Stress Questionnaire Answer Date Recorded Do you feel stress - tense, restless, nervous, or anxious, or unable to sleep at night because your mind is troubled all the time - these days? Very much 08/12/2024 Exercise Vital Sign Answer Date Recorde d On average, how many days pe r week do you engage in moderate to strenuous exercise (like a brisk walk)? 0 days 08/12/2024 On average, how many minutes do you engage in exercise at this level? 0 min 08/12/2024 Hunger Vital Sign Answer Date Recorded Within the past 12 months, y ou worried that your food would run out before you got the money to buy more. Sometimes true Within the past 12 months, t he food you bought just didn't last and you didn't have money to get more. Sometimes true 10/2024 PRAP[facility] - Transportation Answer Date Re corded In the past 12 months, has l ack of transportation kept you from medical appointments or from getting medications? Yes 10/2024 In the past 12 months, has l ack of transportation kept you from meetings, work, or from getting things needed for daily living? Yes 08/12/2024 Housing Stability Vital Sign Answer Albino e Recorded In the last 12 months, was t here a time when you were not able to pay the mortgage or rent on time? No 08/12/2024 In the past 12 months, how m any times have you moved where you were living? 1 08/12/2024 At any time in the past 12 m [facility], were you homeless or living in a jail (including now)? No 08/12/2024 [facility] - Mental Health Answer Date Recorde d Little interest or pleasure in doing things Not at all 10/03/2024 Feeling down, depressed, or hopeless Not at all 10/03/2024 Feeling of Stress Not on file 10/03/2024 Comments No Sex and Gender Information Value Date Recorded Sex Assigned at Not on file Legal Sex Female 10:46 AM CDT Gender Identity Not on file Sexual Orientation Not on file documented as of this encounter Plan of Treatment Not on file documented as of this encounter Visit Diagnoses Not on filedocumented in this encounter Care Teams Equipment Maintenance Tech Relationship Specialty Start Date End Date August, [facility] [address] [place] [id number] PCP - General 01/14/25 Eleanor Lugo FNP [address] [place] [address] [facility] Med Onc Original Referring Provider Family Medicine 07/31/24 Barrett Jamil MD [address] [place] [address] Medical Oncologist Oncology 07/31/24 William Guan FNP [address] [address] Nurse Practitioner Oncology 07/31/24 Zenobia Gonzalez AOCNP [address] [address] Nurse Practitioner Oncology 07/31/24 documented as of this encounter
--- OUTSIDE RECORDS SUMMARY | 2025-05-07 16:35 | XMS_ITS | Encounter Summary ---
Author Organization [facility] Address [address] [place] [address] Phone Care Team Providers Care Cloth Dyeing Range Tender Name Role Phone Eleanor Lugo PREPARATION PLANT REPAIRER Unavailable Barrett Jamil MD Unavailable Leatha vailable William Guan PREPARATION PLANT REPAIRER Unavailable [phone] Zenobia Gonzalez [facility] Unavailable [phone] August PREPARATION PLANT REPAIRER Primary Care Provider Reason for Visit * Reason Comments Med Refill Encounter Details Date Type Department Care Team (Late st Contact Info) Description 03/19/2025 Refill [facility] [address] [place] [address] Eleanor Lugo [facility] [address] [place] [address] Social History Tobacco Use Types Packs/Day Years [...] from your doctor or pharmacy? Sometimes 08/12/2024 [facility] Utilities Answer Date Recorded In the past 12 months has th e electric, gas, oil, or water [employer] threatened to shut off services in your [...] Never 08/12/2024 How often do you attend mandaen or druze serv ices? Never 08/12/2024 Do you belong to any clubs o r organizations such as mandaen groups, unions, fraternal or athletic groups, or [...] Recorded Patient Health Questionnaire-2 Score 0 10/03/2024 [facility] [place] of Occupat ional Health - Occupational Stress [...] any time in the past 12 m [facility], were you homeless or living in a intermediate (including now)? No 08/12/2024 [facility] - Mental Health Answer Date Recorde [...] on filedocumented in this encounter Care Teams Cloth Dyeing Range Tender Relationship Specialty Start Date End Date August, [facility] [address] [place] [id number] PCP - General 01/14/25 Eleanor Lugo FNP [address] [place] [address] [facility] Med Onc Original Referring Provider Family Medicine 07/31/24 Barrett Jamil MD [address] [place] [address] Medical Oncologist Oncology 07/31/24 William Guan FNP [address] [address] Nurse Practitioner Oncology 07/31/24 Zenobia Gonzalez AOCNP [address] [address] Nurse Practitioner Oncology 07/31/24 documented as of this encounter
--- OUTSIDE RECORDS SUMMARY | 2025-05-07 16:35 | XMS_ITS | Encounter Summary ---
Author Organization [facility] Address [address] [address] Phone Care Team Providers Care Croze Cutter Helper Name Role Phone Darius Delgado Calista [facility] Primary Care Provider Eleanor Lugo [facility] Primary Care Provider [phone] [facility] Unavailable [phone] Barrett Jamil MD Unavailable Leatha vailable William Guan HOSPITAL EDUCATOR Unavailable Zenobia Gonzalez [facility] Unavailable Berta Blue [facility] Primary Care Provider [phone] Reason for Visit * Reason Comments Med Refill Encounter Details Date Type Department Care Team (Late st Contact Info) Description 09/21/2022 Refill [facility] [address] [id number] Payton Rodriguez MD [address] [phone] Social History Tobacco Use Types Packs/Day Years Used Date Smoking Tobacco: Every Day Cigarettes 1 22 Smokeless Tobacco: Never Comments:Last used 06-08-22 Alcohol Use Standard Drinks/Week Comments Never 0 [...] Date Recorded Patient Health Questionnaire-2 Score 0 09/22/2022 Comments No Sex and Gender Information Value Date Recorded Sex Assigned at Not on file Legal Sex Female 10:46 AM CDT Gender Identity Not on file Sexual Orientation Not on file COVID-19 Exposure Response Date Recorded In the last 10 days, have yo u been in contact with someone who was confirmed or suspected to have Coronavirus/COVID-19? No / Unsure 09/22/2022 8:44 AM CDT documented as of this encounter Miscellaneous Notes * Telephone Encounter - Beatrice Larios - 09/21/2022 11:10 AM CDT Called patient and spoke with patients , he stated his was sleeping and would have her call our office. documented in this encounter Plan of Treatment Not on file documented as of this encounter Visit Diagnoses Not on filedocumented in this encounter Additional Health Concerns Infection Onset Date Last Indicated Resolved Time COVID-19 Rule-Out 07/13/2024 07/13/2024 07/13/2024 11:05 AM LIVE TRUCK TECHNICIAN documented as of this encounter Care Teams Croze Cutter Helper Relationship Specialty Start Date End Date Darius Delgado FNP [address] [facility] [place] [address] PCP - General Family Medicine 01/28/20 06/20/24 Eleanor Lugo FNP 14[address] [facility] [place] [address] PCP - General Family Medicine 06/21/24 01/13/25 Su BertaALAN [address] [place] [address] PCP - General 01/14/25 Eleanor Lugo FNP [address] [facility] [place] [address] [facility] Med Onc Original Referring Provider Family Medicine 07/31/24 Barrett Jamil MD [address] [facility] [place] [address] Medical Oncologist Oncology 07/31/24 William Guan FNP [address] [address] Nurse Practitioner Oncology 07/31/24 Zenobia Gonzalez AOCNP [address] [address] Nurse Practitioner Oncology 07/31/24 documented as of this encounter
--- OUTSIDE RECORDS SUMMARY | 2025-05-07 16:35 | XMS_ITS | Encounter Summary ---
Author Organization [facility] Address [address] [place] [address] Phone Care Team Providers Care Superintendent Seed Mill Name Role Phone Eleanor Lugo CRITICAL CARE NURSE PRACTITIONER Unavailable Barrett Jamil MD Unavailable Leatha vailable William Guan CRITICAL CARE NURSE PRACTITIONER Unavailable [phone] Zenobia Gonzalez [facility] Unavailable [phone] August CRITICAL CARE NURSE PRACTITIONER Primary Care Provider [phone] Reason for Visit * Reason Comments Med Refill Encounter Details Date Type Department Care Team (Late st Contact Info) Description 02/21/2025 Refill [facility] [place] [address] [place] [address] Eleanor Lugo [facility] [address] [place] [address] Social History Tobacco Use Types Packs/Day Years [...] from your doctor or pharmacy? Sometimes 08/12/2024 [facility] Utilities Answer Date Recorded In the past 12 months has th e electric, gas, oil, or water [employer] threatened to shut off services in your [...] Never 08/12/2024 How often do you attend shinto or anabaptist serv ices? Never 08/12/2024 Do you belong to any clubs o r organizations such as shinto groups, unions, fraternal or athletic groups, or [...] Recorded Patient Health Questionnaire-2 Score 0 10/03/2024 [facility] [place] of Occupat ional Health - Occupational Stress [...] any time in the past 12 m [facility], were you homeless or living in a fdc (including now)? No 08/12/2024 [facility] - Mental Health Answer Date Recorde [...] on filedocumented in this encounter Care Teams Superintendent Seed Mill Relationship Specialty Start Date End Date August, [facility] [address] [place] [id number] PCP - General 01/14/25 Eleanor Lugo FNP [address] [place] [address] [facility] Med Onc Original Referring Provider Family Medicine 07/31/24 Barrett Jamil MD [address] [place] [address] Medical Oncologist Oncology 07/31/24 William Guan FNP [address] [address] Nurse Practitioner Oncology 07/31/24 Zenobia Gonzalez AOCNP [address] [address] Nurse Practitioner Oncology 07/31/24 documented as of this encounter
--- OUTSIDE RECORDS SUMMARY | 2025-05-07 16:35 | XMS_ITS | Encounter Summary ---
Author Organization [facility] Address [address] [place] [address] Phone Care Team Providers Care Chief Optometry Service Name Role Phone Darius Delgado Calista [facility] Primary Care Provider Eleanor Lugo [facility] Primary Care Provider [phone] Eleanor Lugo SUSTAINABILITY MANAGER Unavailable [phone] Barrett Jamil MD Unavailable Leatha vailable William Guan SUSTAINABILITY MANAGER Unavailable Zenobia Gonzalez [facility] Unavailable [phone] Berta Blue [facility] Primary Care Provider [phone] Encounter Details Date Type Department Care Team (Late st Contact Info) Description 06/15/2022 Telephone [facility] [address] [address] Prabha Doran LPN [address] [place] [address] Social History Tobacco Use Types Packs/Day Years [...] suspected to have Coronavirus/COVID-19? No / Unsure 06/09/2022 11:23 AM CYCLE CONSULTANT documented as of this encounter Miscellaneous Notes * Telephone Encounter - Prabha Doran LPN - 06/15/2022 1:25 PM CST Patient is aware. E CONSULTANT * Telephone Encounter - ELSIE Interiano - 06/15/2022 12:12 PM CYCLE CONSULTANT She likely thrombosed an external hemorrhoid after internal banding, okay to use any OTC products to help alleviate symptoms, call if pain persists/increase and we will examine in the office and consider I&D if needed. E CONSULTANT * Telephone Encounter - Prabha Doran LPN - 06/15/2022 12:02 PM CST Patient had her scopes done 06/09/22 by DV along with hemorrhoid ligation. She called this morning toask some questions. She claims that ever since this hemorrhoid banding, she has developed another hemorrhoid externally. She claims it is very uncomfortable, and is it okay to put some hemorrhoidal cream with lidocaine on it. Yes she may try that, can use tucks pads, and they have a new hemorrhoidal cream she could also try. She was encouraged to call us back if she becomes anymore uncomfortable,starts bleeding, running a temp, or cannot safely pass a bowel movement. She verbalized she understood. She will call if this external hemorrhoid gets any worse. E CONSULTANT documented in this encounter Plan of Treatment Not on file documented as of this encounter Visit Diagnoses Not on filedocumented in this encounter Additional Health Concerns Infection Onset Date Last Indicated Resolved Time COVID-19 Rule-Out 07/13/2024 07/13/2024 07/13/2024 11:05 AM CYCLE CONSULTANT documented as of this encounter Care Teams Chief Optometry Service Relationship Specialty Start Date End Date Darius Delgado FNP [address] [place] [address] PCP - General Family Medicine 01/28/20 06/20/24 Eleanor Lugo FNP [address] [facility] [place] [address] PCP - General Family Medicine 06/21/24 01/13/25AugustALAN [address] [facility] [place] [address] PCP - General 01/14/25 Eleanor Lugo FNP [address] [facility] [place] [address] [facility] Med Onc Original Referring Provider Family Medicine 07/31/24 [place] [address] [place] [address] Medical Oncologist Oncology 07/31/24 William Guan FNP [address] [place] [address] Nurse Practitioner Oncology 07/31/24 Zenobia Gonzalez AOCNP [address] [address] Nurse Practitioner Oncology 07/31/24 documented as of this encounter
--- OUTSIDE RECORDS SUMMARY | 2025-05-07 16:35 | XMS_ITS | Encounter Summary ---
Author Organization [facility] Address [address] [place] [address] Phone Care Team Providers Care Mushroom Sorter Grader Name Role Phone Darius Delgado Calista [facility] Primary Care Provider Eleanor Lugo [facility] Primary Care Provider [phone] Eleanor Lugo [facility] Unavailable [phone] Barrett Jamil MD Unavailable Leatha vailable William Guan GLACIOLOGIST Unavailable Zenobia Gonzalez [facility] Unavailable Berta Blue [facility] Primary Care Provider [phone] Reason for Visit * Reason Onset Date Comments Medication Problem 08/26/2022 Encounter Details Date Type Department Care Team (Late st Contact Info) Description 08/26/2022 Telephone [facility] [address] [address] Prabha Doran LPN [address] [place] [address] Medication Problem Social History Tobacco Use Types Packs/Day Years [...] Date Recorded Patient Health Questionnaire-2 Score 0 08/26/2022 Comments No Sex and Gender Information Value Date Recorded Sex Assigned at Not on file Legal Sex Female 10:46 AM CDT Gender Identity Not on file Sexual Orientation Not on file COVID-19 Exposure Response Date Recorded In the last 10 days, have yo u been in contact with someone who was confirmed or suspected to have Coronavirus/COVID-19? No / Unsure 08/26/2022 7:55 AM CDT documented as of this encounter Miscellaneous Notes * Telephone Encounter - Prabha Doran LPN - 08/26/2022 4:59 PM CDT [place] Howard called us this afternoon, to let DV know that patients medicaid will not cover any hemorrhoidal suppositories. Medicaid will only cover the cream. Per AR, just have the patient sampler pickup some suppositories with a cortisone % (OTC). Anita was notified. documented in this encounter Plan of Treatment Not on file documented as of this encounter Visit Diagnoses Not on filedocumented in this encounter Additional Health Concerns Infection Onset Date Last Indicated Resolved Time COVID-19 Rule-Out 07/13/2024 07/13/2024 07/13/2024 11:05 AM EFFICIENCY MINER documented as of this encounter Care Teams Mushroom Sorter Grader Relationship Specialty Start Date End Date Darius Delgado FNP [address] [facility] [place] [address] PCP - General Family Medicine 01/28/20 06/20/24 Eleanor Lugo FNP 14[address] [facility] [place] [address] PCP - General Family Medicine 06/21/24 01/13/25 [facility] [address] [place] [address] PCP - General 01/14/25 Eleanor Lugo FNP [address] [facility] [place] [address] [facility] Med Onc Original Referring Provider Family Medicine 07/31/24 Barrett Jamil MD [address] [facility] [place] [address] Medical Oncologist Oncology 07/31/24 William Guan FNP [address] [address] Nurse Practitioner Oncology 07/31/24 Zenobia Gonzalez AOCNP [address] [address] Nurse Practitioner Oncology 07/31/24 documented as of this encounter
--- OUTSIDE RECORDS SUMMARY | 2025-05-07 16:36 | XMS_ITS | Encounter Summary ---
Author Organization [facility] Address [address] [place] [address] Care Team Providers Care Timber Poisoner Name Role Phone Tiffani Mcneill Calista [facility] Primary Care Provider [phone] Reason for Visit * Reason Comments Med Refill Encounter Details Date Type Department Care Team (Late st Contact Info) Description 05/07/2025 Refill [facility] [address] [place] [address] [facility] [address] [place] [address] Social History Tobacco Use Types Packs/Day Years Used Date Smoking Tobacco: Every Day Cigarettes Passive Smoke Exposure: Current Smokeless Tobacco: Never Alcohol Use Standard Drinks/Week Comments No 0 (1 standard drink = 0.6 oz pur e alcohol) Comments Unknown Sex and Gender Information Value Date Recorded Sex Assigned at Not on file Legal Sex Female 9:16 AM CONSULTING ACTUARY Gender Identity Not on file Sexual Orientation Not on file documented as of this encounter Miscellaneous Notes * Telephone Encounter - Beatrice Guan LPN - 05/07/2025 10:34 AM CST Medication Refill Request Last Fill Date:01/15/25 #30 with 2 RF Recent and Future Visits: Recent Visits Date Type Provider Dept 03/12/25 Office Visit Domenico Dias FNP [facility] 02/28/25 Office Visit Berta Blue CADD OPERATOR [facility] 10/22/25 Office Visit Larissa Minaekta Terrell, [facility] 02/11/25 Office Visit August, [facility] [place] 01/29/25 Office Visit August, [facility] [place] 01/14/25 Office Visit August, [facility] [place] 12/19/24 Office Visit Larissa Minaekta Ter[place], [facility] [place] 12/18/24 Office Visit August, [facility] [place] 12/11/24 Office Visit August, [facility] [place] Showing recent visits within past 540 days with a meds authorizing provider and meeting all other requirements Future Appointments Date Type Provider Dept 05/30/25 Appointment [facility], On license of [facility] Showing future appointments within next 365 days with a meds authorizing provider and meeting all other requirements Last Labs: Lab Results Component Value Date/Time HGBA1C 8.7 (H) 12/18/2024 02:27 PM LDLCALC 12/18/2024 02:27 PM Comment: LDL cholesterol not calculated. Triglyceride levels greater than 400 mg/dL invalidate calculated LDL results. Reference range: <100 Desirable range <100 mg/dL for primary prevention; <70 mg/dL for patients with CHD or diabetic patients with > or = 2 CHD risk factors. LDL-C is now calculated using the Stephanie calculation, which is a validated novel method providing better accuracy than the Friedewald equation in the estimation of LDL-C. Héctor HOGAN et al. SHANE. 2013;310(19): 2438-7455 (http://education.Gooddler.com/faq/DJQ710) CREAT 0.83 03/12/2025 03:32 PM Lab Results Component Value Date/Time CREAT 0.83 03/12/2025 03:32 PM BUN 6 (L) 03/12/2025 03:32 PM NA 136 03/12/2025 03:32 PM K 3.9 03/12/2025 03:32 PM CL 107 03/12/2025 03:32 PM CO2 22 03/12/2025 03:32 PM GFR 91 03/12/2025 03:32 PM Jacquie Bryant - 1985 Check and review of the [place] PDMP performed on 05/07/2025 at 10:34 AM was ULTING ACTUARY documented in this encounter Plan of Treatment Upcoming Encounters Date Type Department Care Team (Late st Contact Info) Description 05/30/2025 3:00 PM CONSULTING ACTUARY Office Visit [facility] [place] [address] [place] [address] [facility], CADD OPERATOR [address] [place] [address] 07/16/2025 11:30 AM CDT Appointment [facility] Neurology [facility] [address] [place] [address] Hector Trent MD [address] [place] [address] documented as of this encounter Visit Diagnoses Not on filedocumented in this encounter Care Teams Timber Poisoner Relationship Specialty Start Date End Date Tiffani Mcneill DO [address] [place] [address] PCP - General Family Practice 04/08/10 documented as of this encounter
--- OUTSIDE RECORDS SUMMARY | 2025-05-07 16:36 | XMS_ITS | Encounter Summary ---
Author Organization [facility] Address [address] [address] Phone Care Team Providers Care Newspaper Stuffer Name Role Phone Darius Delgado Calista [facility] Primary Care Provider Eleanor Lugo ASTRONOMY PROFESSOR Primary Care Provider [phone] Eleanor Lugo ASTRONOMY PROFESSOR Unavailable [phone] Barrett Jamil MD Unavailable Leatha vailable William Guan ASTRONOMY PROFESSOR Unavailable [phone] Zenobia Gonzalez AOP Unavailable [phone] Berta Blue ASTRONOMY PROFESSOR Primary Care Provider [phone] Encounter Details Date Type Department Care Team (Late st Contact Info) Description 07/17/2020 Orders Only [facility] [address] [address] Luis F Tena LPN [address] [address] Social History Tobacco Use Types Packs/Day Years [...] COVID-19 Rule-Out 07/13/2024 07/13/2024 07/13/2024 11:05 AM DRUG REGULATORY AFFAIRS SPECIALIST documented as of this encounter Care Teams Newspaper Stuffer Relationship Specialty Start Date End Date Darius Delgado FNP [address] [facility] [address] PCP - General Family Medicine 01/28/20 06/20/24 Eleanor Lugo FNP [address] [place] [address] PCP - General Family Medicine 06/21/24 01/13/25 Su BertaALAN [address] [place] [address] PCP - General 01/14/25 Eleanor Lugo FNP [address] [place] [address] [facility] Med Onc Original Referring Provider Family Medicine 07/31/24 Barrett Jamil MD [address] [place] [address] Medical Oncologist Oncology 07/31/24 William Guan FNP [address] [address] Nurse Practitioner Oncology 07/31/24 Zenobia Gonzalez AOCNP [facility] [address] [place] [address] Nurse Practitioner Oncology 07/31/24 documented as of this encounter
--- OUTSIDE RECORDS SUMMARY | 2025-05-07 16:36 | XMS_ITS | Patient Health Record ---
Author Organization [facility] Address [address] [place] [address] Care Team Providers Care Jewelry Inspector Name Role Phone ( [facility] ), PHYSICIAN NOT IDENTIFIED Primary Care Provider Unavailable Milan Chavez Unavailable [phone] Ronny Giron Unavailable [phone] Allergies Allergen (clinical drug ingredient) Drug/Non Drug Allergy documented on EMR Reaction Allergy Type Onset Date Status nitrofurantoin, macrocrystals / nitrofurantoin, monohydrate Macrobid Unknown Drug Allergy Active Xyphex Unknown Drug Allergy Active codeine Codeine Unknown Drug Allergy Active Penicillin Unknown Drug Allergy Active trazodone Trazodone Unknown Drug Allergy Active Reason For Referral No Information Medications Medication SIG (Take, Route, Frequency, Duration) Notes Start Date End Date Status Lexapro Active Rosuvastatin Calcium Active ZyPREXA Active Cymbalta Active Farxiga Active Gabapentin Active hydrOXYzine HCl Acti ve Albuterol Active EQ Acetaminophen 500 MG Tablet 2 tablet as needed Orally every 6 hrs; Duration: 7 days 03/19/2025 Active Ibuprofen 600 MG Tablet 1 tablet with fo od or milk as needed Orally every 6 hours; Duration: 7 days 03/19/2025 Active Clindamycin HCl 150 MG Capsule 1 capsule Orally every 6 hours; Duration: 7 days 03/19/2025 Active Chlorhexidine Gluconate 0.12 % Solution 15 mL swish for 30 seconds, then spit. Do not swallow. Mouth/Throat Twice a day; Duration: 10 days 03/19/2025 Active Social History Sex Assigned At : Social History Observation Description Sex Assigned At Female Problems Problem Type SNOMED Code ICD Code Onset Dates Problem Status W/U Status Risk Notes Problem Snores (95579600) Snores (R06.83) Active confir med Problem Fibromyalgia (759470670) Fibromyalgia (M79.7) Active confirmed Problem Posttraumatic stress disorder (44161321) PTSD (post-traumatic stress disorder) (F43.10) Active confirmed Problem Anxiety disorder (189269060) Anxiety disorder, unspecified (F41.9) Active confirmed Problem Trigeminal neuralgia (80922660) Trigeminal neuralgia (G50.0) Active confirmed Problem Other dental procedure status (Z98.818) Active confirmed Problem Panic disorder (924849549) Panic attacks (F41.0) Active confirmed Problem Restless legs (04574106) RLS (restless legs syndrome) (G25.81) Active confirmed Problem Bipolar I disorder (731714141) Bipolar disorder in full remission, most recent episode unspecified type (F31.70) Active confirmed Problem Depression (154093131) Depression, unspecified (F32.A) Active confirmed Problem MTHFR gene mutation (Z15.89) Active confirmed Problem 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 Problem Non-alcoholic fatty liver disease (6935876283) Non-alcoholic fatty liver disease (K76.0) Active confirmed Problem Type II diabetes mellitus without complication (004597306) Type 2 diabetes mellitus without complications, unspecified whether snf insulin use (E11.9) Active confirmed Vital Signs Heart Rate 71 /min 03/19/2025 Oximetry 99 % 03/19/2025 Height-cm 165.1 cm 03/19/2025 Blood pressure diastolic 75 mm Hg 03/19/2025 Weight-kg 84.37 kg 11/16/2024 Height 65 in 03/19/2025 Blood pressure systolic 124 mm Hg 03/19/2025 Weight 186 lbs 11/16/2024 BMI 30.95 kg/m2 11/16/2024 Encounters Encounter Location Date Provider Diagnosis [facility] [address] [place] [address] 11/16/2024 Ronny Giron [facility] [address] [address] 03/19/2025 Ronny Giron Other dental procedure status Z98.818 18th [facility] [address] [place] [address] 10/09/2024 Ronny Najera 18[facility] [address] [place] [address] 12/13/2024 Ronny Najera 18[facility] [address] [place] [address] 02/13/2025 Ronny Najera 18[facility] [address] [place] [address] 02/14/2025 Ronny Giron [address] [place] [address] Dental Clinic [address] [place] [address] 03/07/2025 Ronny Giron Assessments Encounter Date Diagnosis (ICD Code) Assessment Notes Treatment Notes Treatment Clinical Notes Section Notes 03/19/2025 Other dental procedure status (ICD-10 - Z98.818) Plan Of Treatment No Information Insurance Providers Payer Name Payer Address Payer Phone Subscriber Number Group Number Insured Name Patient Relationship to Insured Coverage Start Date Coverage End Date Medicaid Dental [address] [place] [address] [id number] Jacquie Bryant Self - patient is the insured Medicaid [address] [place] [phone] [id number] Jacquie Bryant Self - patient is the insured Medications Administered Medication Instructions Date of Administration Dosage Notes Dexmedetomidine 03/19/2025 10 ug Ondansetron 4mg/2ml 03/19/2025 4 mg Atropine Sulfate 03/19/2025 0.4 mg Clindamycin Phosphate 03/19/2025 600 mg dexAMETHasone Sodium Phosphate 03/19/2025 10 mg Ketorolac Tromethamine 03/19/2025 30 mg Midazolam 03/19/2025 5 mg Propofol 03/19/2025 130 mg Medical (General) History Medical History History ICD Code seasonal allergies bruise easily type II diabetes anxiety depression PTSD Bi Polar RLS (restless legs syndrome) G25.81 Non-alcoholic fatty liver disease K76.0 MTHFR Gene mutation TMJ dysfunction M26.609 Trigeminal neuralgia G50.0
--- OUTSIDE RECORDS SUMMARY | 2025-05-07 16:36 | XMS_ITS | Encounter Summary ---
[facility] Organization [facility] Address [address] [place] [address] Care Team Providers Care Pilot Plant Supervisor Name Role Phone Tiffani Mcneill DO Primary Care Provider Encounter Details Date Type Department Care Team (Latest Contact Info) Description 03/21/2008 Outpatient Historical [facility] SEARCH ENGINE MARKETING SPECIALIST, Family Medicine and Maternal- Medicine [address] [place] [address] Ronny Dai MD [address] [place] [address] Supervision of Normal First Social History Tobacco Use Types Packs/Day Years Used Date Smoking Tobacco: Every Day Cigarettes 0.5 7 Alcohol Use Standard Drinks/Week Comments No 0 (1 standard drink = 0.6 oz pur e alcohol) Comments Yes Sex and Gender Information Value Date Recorded Sex Assigned at Not on file Legal Sex Female 5:54 AM TOBACCO HANGER Gender Identity Not on file Sexual Orientation Not on file documented as of this encounter Plan of Treatment Not on file documented as of this encounter Procedures Procedure Name Priority Date/Time Associated Diagnosis Comments PROTEIN S ACTIVITY Routine 03/21/2008 12 :11 PM TOBACCO HANGER HEPATITIS C ANTIBODY Routine 03/21/2008 12:11 PM TOBACCO HANGER PROTEIN C ACTIVITY Routine 03/21/2008 12 :11 PM TOBACCO HANGER FIBRINOGEN QUANTITATIVE Routine 03/21/2008 12:11 PM TOBACCO HANGER ANTITHROMBIN III ACTIVITY Routine 03/21/2008 12:11 PM TOBACCO HANGER FACTOR VIII ASSAY Routine 03/21/2008 12: 11 PM TOBACCO HANGER GC, GENITAL Routine 03/21/2008 11:31 AM TOBACCO HANGER CHLAMYDIA, GENITAL Routine 03/21/2008 11 :31 AM TOBACCO HANGER PATHOLOGY Routine 03/21/2008 8:58 AM TOBACCO HANGER documented in this encounter Results * PROTEIN S ACTIVITY (03/21/2008 12:11 PM TOBACCO HANGER) [facility] PROTEIN S ACTIVITY 52 45 - 125 % [facility] Blood specimen (specimen) 03/21/2008 12:11 PM TOBACCO HANGER 03/21/2008 8:15 PM TOBACCO HANGER Ronny Dai MD CHEMISTRY ORDERABLES Final Res ult Performing Organization Address [facility] Phone Number INTERFACE SYSTEM Refer to clinic/hospital department [facility] CLIA# [id number] [address] [place] [address] * PROTEIN C ACTIVITY (03/21/2008 12:11 PM TOBACCO HANGER) [facility] PROTEIN C ACTIVITY 115 70 - 141 % [facility] Blood specimen (specimen) 03/21/2008 12:11 PM TOBACCO HANGER 03/21/2008 8:15 PM TOBACCO HANGER Ronny Dai MD HEMATOLOGY ORDERABLES Final Re sult Performing Organization Address [facility] de Phone Number INTERFACE SYSTEM Refer to clinic/hospital department [facility] CLIA# [id number] [address] [place] [address] * HEPATITIS C ANTIBODY (03/21/2008 12:11 PM TOBACCO HANGER) Pathologist [facility] HEPATITIS C AB Non-React mindi Non-React mindi [facility] Comment: HCV antibody testing is performed by enhanced chemiluminescence immunoassay methodology. The CDC recommends that positive HCV antibody tests be confirmed with either RIBA (recombinant immunoblot assay) or PCR testing. The same specimen can be used for RIBA testing and will be held for 7 days. Please contact the Chemistry laboratory if RIBA testing is desired. Blood specimen (specimen) 03/21/2008 12:11 PM TOBACCO HANGER 03/21/2008 8:15 PM TOBACCO HANGER Ronny Dai MD CHEMISTRY ORDERABLES Final Res ult Performing Organization Address [facility] Phone Number INTERFACE SYSTEM Refer to clinic/hospital department [facility] CLIA# [id number] [address] [place] [address] * FIBRINOGEN QUANTITATIVE (03/21/2008 12:11 PM TOBACCO HANGER) FIBRINOGEN 352 200 - 400 mg/dL [facility] Blood specimen (specimen) 03/21/2008 12:11 PM TOBACCO HANGER 03/21/2008 8:14 PM TOBACCO HANGER Ronny Dai MD HEMATOLOGY ORDERABLES Final Re sult Performing Organization Address [facility] Phone Number INTERFACE SYSTEM Refer to clinic/hospital department [facility] CLIA# [id number] [address] [place] [address] * FACTOR VIII ASSAY (03/21/2008 12:11 PM TOBACCO HANGER) FACTOR VIII ASSAY 97 50 - 150 %Activity [facility] Blood specimen (specimen) 03/21/2008 12:11 PM TOBACCO HANGER 03/21/2008 8:14 PM TOBACCO HANGER us Ronny Dai MD HEMATOLOGY ORDERABLES Final Re sult Performing Organization Address [facility] Phone Number INTERFACE SYSTEM Refer to clinic/hospital department [facility] CLIA# [id number] [address] [place] [address] * ANTITHROMBIN III ACTIVITY (03/21/2008 12:11 PM TOBACCO HANGER) ANTITHROMBIN III ACTIVITY 96 80 - 120 % [facility] Blood specimen (specimen) 03/21/2008 12:11 PM TOBACCO HANGER 03/21/2008 8:14 PM TOBACCO HANGER us Ronny Dai MD HEMATOLOGY ORDERABLES Final Re sult Performing Organization Address [facility] Co de Phone Number INTERFACE SYSTEM Refer to clinic/hospital department [facility] CLIA# [id number] [address] [place] [address] * GC DNA AMPLIFICATION (03/21/2008 11:31 AM TOBACCO HANGER) Pathologist [facility] FINAL REPORT DNA Amplification Assay: negative for Neisseria gonorrhoeae The [employer] CT/NG test by Polymerase Chain Reaction (PCR) is approved for testing only on endocervical and male urethral swab specimens and male urine. The use of specimens from any other body site has not been validated. Detection of Neisseria gonorrhoeae is dependent on the number of organisms present in the specimen. This may be affected by patient factors, stage of infection, specimen collection methods, transport, storage and processing procedures. INTERFACE SYSTEM Specimen from genital system (specimen) (Endocervical) 03/21/2008 11:31 AM TOBACCO HANGER 03/21/2008 8:47 PM TOBACCO HANGER us Ronny Dai MD MICROBIOLOGY - GENERAL ORDERAB LES Final Result Performing Organization Address [facility] Co de Phone Number INTERFACE SYSTEM Refer to clinic/hospital department * CHLAMYDIA DNA AMPLIFICATION (03/21/2008 11:31 AM TOBACCO HANGER) FINAL REPORT DNA Amplification Assay: negative for Chlamydia trachomatis --------- The [employer] CT/NG test by Polymerase Chain Reaction (PCR) is approved for testing only on endocervical and male urethral swab specimens and urine. The use of specimens from any other body site has not been validated. Dectection of Chlamadia trachomatis is dependent on the number of organisms present in the specimen. This may be affected by patient factors, stage of infection, specimen collection methods, transport, storage and processing procedures. INTERFACE SYSTEM Specimen from genital system (specimen) (Endocervical) 03/21/2008 11:31 AM TOBACCO HANGER 03/21/2008 8:47 PM TOBACCO HANGER us Ronny Dai MD MICROBIOLOGY - GENERAL ORDERAB LES Final Result INTERFACE SYSTEM Refer to clinic/hospital department * PATHOLOGY (03/21/2008 8:58 AM TOBACCO HANGER) PATHOLOGY/CY TOLOGY REPORT [facility] Anatomic Pathology Dept [address] [place] [id number] Patient: JACQUIE ROME Accn No: [id number] Collected: 03/21/2008 8:58:00 AM CYTOLOGY TRANSPORTATION DRIVER FINAL REPORT - - WELLNESS CONSULTANT PAP History Specimen Source: None Provided Last Pap Date: None Provided Specimen Adequacy Satisfactory for interpretation. The smear shows sufficient numbers of endocervical or metaplastic cells. Diagnosis NEGATIVE FOR INTRAEPITHELIAL LESION OR MALIGNANCY. (Previously noted as Within Normal Limits) Media Analyst MYESHA 03/28/08 Completed by: DMITRI CROFT(ASCP) (Electronically signed by) 03/28/08 Comment Routine follow-up is suggested. Important Info About Pap Smears HPV Testing off the Thin Prep vial can be done as a means of further evaluating a Thin Prep Report. For information about ordering the HPV test, phone Cytology at . Treatment or follow-up recommendations (if any) that are considered within this report are based upon general recommendations as contained in 2001 Consensus Guidelines For Cervical Cytological Abnormalities SHANE: August 30, 2001, and are provided as a general guideline rather than as a specific recommendation. Final decisions about the most appropriate treatment and follow-up should be made on an individualized basis by the treating physician in consultation with his/her patient. INTERFACE SYSTEM 03/21/2008 8:58 AM TOBACCO HANGER us Ronny Dai MD PATHOLOGY/CYTOLOGY ORDERABLES Edited INTERFACE SYSTEM Refer to clinic/hospital department documented in this encounter Visit Diagnoses Diagnosis Supervision of normal first documented in this encounter Care Teams Pilot Plant Supervisor Relationship Specialty Start Date End Date Tiffani Mcneill DO [address] [place] [address] PCP - General Family Practice 04/08/10 documented as of this encounter
--- OUTSIDE RECORDS SUMMARY | 2025-05-07 16:36 | XMS_ITS | Clinical Summary ---
Author Organization [facility] Address [address] [place] [address] Phone Care Team Providers Care Agricultural Produce Commission Agent Name Role Phone Sarah Lugom MILL ROLL REWINDER Unavailable [phone] Barrett Jamil MD Unavailable Leatha vailable William Guan MILL ROLL REWINDER Unavailable [phone] Zenobia Gonzalez AOP Unavailable [phone] Su Berta MILL ROLL REWINDER Primary Care Provider [phone] Allergies Active Allergy Reactions Criticality Noted Date Comments Codeine Nausea And Vomiting Low 03/21/2008 Nitrofurantoin Macrocrystal Other 04/02/2009 BLISTERS Nitrofurantoin Monohyd/M-Cryst Rash Low 03/21/2008 Olanzapine Rash,Other Low 01/17/2024 Welts on legs Penicillins Other Low 03/21/2008 MOUTH SORES/thrush Trazodone Headache 03/21/2008 MIGRAINES Medications DULoxetine (Cymbalta) [address] capsule Take 60 mg by mouth 2 (two) times a day. 02/25/20 20 Active cyclobenzaprine (Flexeril) 10 mg tablet Take 10 mg by mouth 2 (two) times a day if needed for muscle spasms. Active albuterol (Proventil;Ventoli n) 90 mcg/actuation inhaler Inhale 2 puffs every 6 (six) hours if needed for wheezing. Active acetaminophen-code ine (Tylenol #3) 300-30 mg tablet Take 1 tablet by mouth every 8 (eight) hours if needed for severe pain (7-10). Active meclizine (Antivert) 25 mg tablet Take 25 mg by mouth if needed for dizziness or nausea. 04/04/20 24 Active hydrOXYzine HCL (Atarax) 25 mg tablet Take 1 tablet by mouth 3 (three) times a day if needed for anxiety. 05/15/19 Active norethindrone (Micronor) 0.35 mg tabletIndications: Abnormal uterine bleeding Take 1 tablet (0.35 mg total) by mouth 1 (one) time each day. 28 tablet 12 07/14/19 25 026 Active pen needle, diabetic 31 gauge x 5/16 needleIndications: Type 2 diabetes mellitus without complication, without long-term current use of insulin ([facility]) Use to inject 1-4 times daily as directed. 100 each 07/31/19 25 026 Active topiramate 50 mg tablet Take 50 mg by mouth 2 (two) times a day. 60 tablet 08/01/19 25 Active glucose blood test strip Check blood sugars daily E11.9 100 each 08/28/19 25 026 Active lancets 33 gauge misc 1 each 1 (one) time each day. Check Blood sugars daily E11.9 100 each 08/28/19 25 Active omeprazole (PriLOSEC) [address] capsule Take 1 capsule (20 mg total) by mouth 2 (two) times a day. 60 capsule 08/30/19 25 Active famotidine (Pepcid) 20 mg tablet Take 1 tablet (20 mg total) by mouth 2 (two) times a day. 60 tablet 08/30/19 25 Active diclofenac (Voltaren) 1 % topical gelIndications:Acu te pain of left shoulder Apply 2 g topically 4 (four) times a day if needed (shoulder pain). Apply to affected joint 150 g 3 09/11/19 25 Active Additional Information Patient not taking.Reported on 11/12/2024 Farxiga 5 mgIndications:Type 2 diabetes mellitus without complication, without long-term current use of insulin ([facility]) Take 1 tablet by mouth once daily 30 tablet 2 10/03/19 25 Active celecoxib (CeleBREX) 100 mg capsule Take 1 capsule (100 mg total) by mouth 2 (two) times a day. 60 capsule 5 10/03/19 25 Active gabapentin (Neurontin) 600 mg tablet Take 1 tablet (600 mg total) by mouth 3 (three) times a day. 90 tablet 5 10/03/19 25 Active Ozempic 0.25 mg or 0.5 mg (2 mg/3 mL) pen injectorIndication s:Type 2 diabetes mellitus without complication, without long-term current use of insulin ([facility]) Inject 0.5 mg under the skin every 7 (seven) days. 3 mL 2 11/06/19 25 Active escitalopram (Lexapro) 20 mg tablet Take 20 mg by mouth 1 (one) time each day. 10/23/19 25 Active cetirizine (ZyrTEC) 10 mg tablet Take 1 tablet (10 mg total) by mouth 1 (one) time each day. 90 tablet 3 11/13/19 25 026 Active fluticasone (Flonase) 50 mcg/actuation nasal spray Administer 2 sprays into each nostril 1 (one) time each day. Shake gently. Before first use, prime pump. After use, clean tip and replace cap. 16 g 5 11/13/19 25 026 Active dicyclomine (Bentyl) 20 mg tabletIndications: Chronic diarrhea TAKE 1 TABLET BY MOUTH THREE TIMES DAILY 270 tablet 1 11/15/19 25 Active rosuvastatin (Crestor) 20 mg tabletIndications: Mixed hyperlipidemia Take 1 tablet (20 mg total) by mouth 1 (one) time each day. 30 tablet 01/15/20 25 Active Active Problems Problem Noted Date Diagnosed Date Patella, chondromalacia, left 08/31/2024 Leukocytosis 07/02/2024 Non-alcoholic fatty liver disease 07/02/2024 Type II diabetes mellitus 06/21/2024 Tear of medial meniscus of left knee, current Diarrhea 03/09/2024 Tear of medial meniscus of right knee, current 0 08/26/2022 Chondromalacia of right patella 08/26/2022 Chondromalacia of left patella 03/24/2020 Overview (03/24/2020): Added automatically from request for surgery [id number] Carpal tunnel syndrome, bilateral 03/04/2020 MTHFR mutation 03/28/2008 Fibromyalgia Depression Bipolar 1 disorder Anxiety GERD (gastroesophageal reflux disease) Overview (08/08/2020): was controlled well w/meds- out of pepcid Insomnia Panic attacks Snores Restless leg syndrome PTSD (post-traumatic stress disorder) Lumbar pain Resolved Problems Problem Noted Date Diagnosed Date Resolved Date Unspecified hemorrhoids 03/09/202406/09 Patellar instability of right knee 01/17/2024 06/21/2024 Tear of meniscus of right kn ee as current injury 09/20/2023 06/21/2024 Chronic pain of right knee 09/20/2023 0 06/21/2024 Bilateral carpal tunnel syndrome 08/26/2022 06/21/2024 Trigger middle finger of right hand 08/26/2022 06/21/2024 Ganglion, finger joint of right hand 08/26/2022 06/21/2024 LGI bleed 2022 06/21/2024 Overview (2022): Added automatically from request for surgery [id number] Change in stool 2022 06/21/2024 Overview (2022): Added automatically from request for surgery [id number] Epigastric pain 2022 06/21/2024 Overview (2022): Added automatically from request for surgery [id number] Incomplete tear of right rotator cuff 10/28/2020 06/21/2024 S/P left knee arthroscopy 10/28/2020 Lateral epicondylitis of right elbow 10/28/2020 06/21/2024 Nontraumatic incomplete tear of right rotator cuff 08/08/2020 06/21/2024 Fibroma of foot 08/08/2020 07/02/2024 Patellar tracking disorder of left knee 03/04/2020 06/21/2024 Patellar tracking disorder of right knee 03/04/2020 06/21/2024 Patella, chondromalacia, left 03/04/2020 06/21/2024 Patellar instability of left knee 03/04/2020 06/21/2024 Fracture of ankle 04/08/2013 06/21/2024 Overview (08/08/2020): left History of stomach ulcers 05/09/2012 History of kidney stones History of claustrophobia History of 2019 novel collado virus disease (COVID-19) 06/21/2024 Overview (08/08/2020): tested positive 03/14/20- symptoms until 03/21/20- sinus issues/lost of taste/smell- no chest congestion Frequent headaches Fracture of hand 06/21/2024 Overview (08/08/2020): age 1, unsure of which hand or digit Knee dislocation 06/21/2024 Overview (08/08/2020): left knee pain Motion sickness 06/21/2024 Numbness and tingling in both hands 06/21/2024 Patella fracture 06/21/2024 Overview (08/08/2020): left Wears dentures 06/21/2024 Overview (08/08/2020): full upper plate PONV (postoperative nausea and vomiting) 06/21/2024 Overview (08/08/2020): nausea /vomiting- with dental extractions Encounters Date Type Department Care Team Description 04/13/2025 [facility]ill [facility] [place] [address] [place] [address] Eleanor Lugo FNP 03/19/2025 [facility]ill [facility] [place] [address] [place] [address] Eleanor Lugo FNP 02/21/2025 Refill [facility] [place] [address] [place] [address] Eleanor Lugo FNP from Last 3 Months Immunizations Immunization Administration Dates Next Due DTP 11/23/1988,09/22/1987,10/01/1986 ,11/27/1985,10/02/1985 DTaP 11/23/1988,09/22/1987,10/01/1986 ,11/27/1985,10/02/1985 HPV, Quadrivalent 01/27/2010,12/03/2008 HiB 12/03/1986 Hib (PRP-T) 12/03/1986 IPV 11/23/1988,09/22/1987,11/27/1985 ,09/27/1985 Influenza TIV (IM) 03/21/2008 MMR 10/31/1987 OPV 11/23/1988,09/22/1987,11/27/1985 ,09/27/1985 Td 03/17/1999 Tdap 10/26/2013 Family History Medical History Relation Comments Colon cancer Cousin Cancer Father Hypertension Father Heart disease Maternal Grandmother Stroke Maternal Grandmother COPD Mother Heart disease Mother Lung disease Mother Miscarriages / Stillbirths Mother Alcohol abuse Other 1 Vision loss Other 2 Diabetes Neg Hx Malig Hyperthermia Neg Hx Pseudochol deficiency Neg Hx Relation Status Comments Cousin Alive Father unknown- rare ca ncer- limited family history Maternal Grandmother Mother Other 1 Other 2 Social History Tobacco Use Types Packs/Day Years Used Date Smoking Tobacco: Every Day Cigarettes 1 23.5 Started: 2004 Passive Smoke Exposure: Current Smokeless Tobacco: Never Tobacco Cessation:Ready to Q uit: Not Asked; Counseling Given: Not Answered Comments:Started smoking at age 16 Alcohol Use Standard Drinks/Week Comments Never 0 (1 standard drink = 0.6 oz pur e alcohol) B1300 Health Literacy Answer Date Recor ded How often do you need to hav e someone help you when you read instructions, pamphlets, or other written material from your doctor or pharmacy? Sometimes 08/12/2024 [place] Utilities Answer Date Recorded In the past 12 months has th e [employer], gas, oil, or water [employer] threatened to shut off services in your [...] How often do you attend shinto or church serv ices? Never 08/12/2024 Do you belong [...] Recorded Patient Health Questionnaire-2 Score 0 10/03/2024 [facility] [place] of Occupat ional Health - Occupational Stress [...] any time in the past 12 m [facility], were you homeless or living in a penitentiary (including now)? No 08/12/2024 [place] - Mental Health Answer Date Recorde d [...] Sign Reading Time Taken Comments Blood Pressure 120/86 11/12/2024 11:21 AM CDT Pulse 81 11/12/2024 11:21 AM CDT Temperature 36.3 C (97.4 F) 11/12/2024 11:21 AM CDT Respiratory Rate 18 11/12/2024 11:21 AM CDT Oxygen Saturation 100% 11/12/2024 11:21 AM CDT Inhaled Oxygen Concentration - - Weight 84.6 kg (186 lb 6.4 oz) 11/12/2024 11:21 AM CDT Height 165.1 cm (5' 5 ) 11/12/2024 11:21 AM CDT Body Mass Index 31.02 11/12/2024 11:21 AM CDT Plan of Treatment Health Maintenance Due Date Last Done Comments CT Colonography 1983 FIT-DNA 1983 FIT 1983 FOBT 1983 Sigmoidoscopy 1983 COVID-19 Vaccines (#1) 1988 Diabetes: Foot Exam 1993 Diabetes: Retinopathy Screening 1993 Varicella Vaccines (1 of 2 - 13+ 2-dose series) 1996 Hepatitis C Screening 2001 Social Drivers of Health (SDoH) 2001 Hepatitis A Vaccines (1 of 2 - Risk 2-dose series) 2002 Hepatitis B Vaccines (1 of 3 - 19+ 3-dose series) 2002 Pneumococcal Vaccines (1 of 2 - PCV) 2002 Zoster Vaccines (1 of 2) 2002 HPV Vaccines (3 - Risk 3-dose series) 05/29/2010 01/27/2010, 12/03/2008 Mammogram 2023 DTaP,Tdap,and Td Vaccines (7 - Td or Tdap) 10/27/2023 10/26/2013, 03/17/1999, 11/23/1988, Additional history exists Diabetes: Hemoglobin A1C 09/18/2024 06/21/2024, 02/06 Influenza Vaccine (#1) 2025 03/21/2008 Creatinine Level 08/27/2025 08/27/2024, , 06/21/2024, Additional history exists Potassium Level 08/27/2025 08/27/2024, 03/2 08/2024, 06/21/2024 Depression Screening 10/04/2025 10/03/2024 Colonoscopy 06/08/2029 06/08/2024, 02/0 05/2022, 01/01/2022 Colorectal Cancer Screening 06/08/2029 Gastroscopy (EGD) 06/08/2029 06/08/2024 RSV Vaccines (1 - 1-dose 75+ series) 2058 HIB Vaccines Completed 12/03/1986, 12/03/1986 MMR Vaccines Completed 10/31/1987 IPV Vaccines Completed 11/23/1988, 11/06, 09/22/1987, Additional history exists Pap Smear Discontinued 06/21/2024 Meningococcal B Vaccine Aged Out No l onger eligible based on patient's age to complete this topic Meningococcal Vaccine Aged Out No margarita luis eligible based on patient's age to complete this topic Rotavirus Vaccines Aged Out No longer eligible based on patient's age to complete this topic Medical Devices Implanted Type Area Skylights Assembler Device Identifier Shelf Expiration Date Model / Serial / Lot Gracilis Allograft 4 X 240mm - [id number] Implanted:Qty : 1 on 04/14/2020 by Andrew Thomas MD at [facility] Blood Bank Implant Left: Knee LIFNH 11/28/2024 [id number] / / [id number] Description:PURCHASED ON PO# [id number] Impl Sys Mpfl Acl [employer] - [id number] Implanted:Qty : 1 on 04/14/2020 by Andrew Thomas MD at [facility] Orthopedics Implant Left: Knee ARTHREX 01/06/2022 [id number] / / [id number] Description:PURCHASED ON PO# [id number] Implant System Mpfl - [id number] Implanted:Qty : 1 on 04/14/2020 by Andrew Thomas MD at [facility] Orthopedics Implant Left: Knee ARTHREX 01/07/2024 [id number] / / [id number] Description:PURCHASED ON PO# [id number] Procedures Procedure Name Priority Date/Time Associated Diagnosis Comments COMPREHENSIVE METABOLIC PANEL STAT 08/27/2024 8:55 AM CDT Leukocytosis, unspecified type Elevated lymphocytes PAP SMEAR Routine 06/21/2024 3:51 PM FUR WEIGHER Cervical cancer screening HEMOGLOBIN A1C Routine 06/21/2024 11:16 AM FUR WEIGHER Type 2 diabetes mellitus without complication, without long-term current use of insulin ([facility]) from Last 3 Months or Most Recently Relevant to Health Maintenance Results * (ABNORMAL) Comprehensive Metabolic Panel (08/27/2024 8:55 AM CDT) [facility] Glucose 268(H) 70 - 100 mg/dL LAB CHEMISTRY METHOD 08/27/2024 9:54 AM CDT [facility] BUN 7 7 - 17 mg/dL LAB CHEMISTRY METHOD 08/27/2024 9:54 AM CDT [facility] Creatinine 0.95 0.52 - 1.04 mg/dl LAB CHEMISTRY METHOD 08/27/2024 9:54 AM CDT [facility] BUN/Creatinine Ratio 7(L) 12 - 17 LAB CHEMISTRY METHOD 08/27/2024 9:54 AM CDT [facility] Sodium 135 135 - 145 mmol/L LAB CHEMISTRY METHOD 08/27/2024 9:54 AM CDT [facility] Potassium 3.6 3.6 - 5.0 mmol/L LAB CHEMISTRY METHOD 08/27/2024 9:54 AM CDT [facility] Chloride 107 101 - 111 mmol/L LAB CHEMISTRY METHOD 08/27/2024 9:54 AM CDT [facility] Total Carbon Dioxide 24 22 - 30 mmol/L LAB CHEMISTRY METHOD 08/27/2024 9:54 AM CDT [facility] Anion Gap 8(L) 9 - 17 mmol/L LAB CHEMISTRY METHOD 08/27/2024 9:54 AM CDT [facility] Calcium 9.6 8.2 - 10.2 mg/dL LAB CHEMISTRY METHOD 08/27/2024 9:54 AM CDT [facility] Total Protein, Serum 7.6 5.6 - 8.5 g/dL LAB CHEMISTRY METHOD 08/27/2024 9:54 AM CDT [facility] Albumin 3.7 3.5 - 5.2 g/dL LAB CHEMISTRY METHOD 08/27/2024 9:54 AM CDT [facility] GLOBULIN 3.9(H) 2.1 - 3.8 g/dL LAB CHEMISTRY METHOD 08/27/2024 9:54 AM CDT [facility] A/G Ratio 0.9(L) 1.4 - 1.7 LAB CHEMISTRY METHOD 08/27/2024 9:54 AM CDT [facility] Bilirubin, Total 0.4 0.1 - 1.3 mg/dL LAB CHEMISTRY METHOD 08/27/2024 9:54 AM CDT [facility] Alkaline Phosphatase 103 45 - 117 U/L LAB CHEMISTRY METHOD 08/27/2024 9:54 AM CDT [facility] ALT (SGPT) 28 11 - 58 U/L LAB CHEMISTRY METHOD 08/27/2024 9:54 AM CDT [facility] AST (SGOT) 20 9 - 55 U/L LAB CHEMISTRY METHOD 08/27/2024 9:54 AM CDT [facility] eGFR >60 >=60 mL/min/1. 73 m2 LAB CHEMISTRY METHOD 08/27/2024 9:54 AM CDT [facility] Blood Venous blood specimen / Unknown Venipuncture / Unknown 08/27/2024 8:55 AM CDT 08/27/2024 8:55 AM CDT us Barrett Hernandez MD LAB BLOOD ORDERABLES Final Result [facility] [address] [address] * Pap Smear (06/21/2024 3:51 PM FUR WEIGHER) Case Report Pap Test Case: [id number] Authorizing Provider: ALAN Benedict Collected: 06/21/2024 1551 Ordering Location: [facility] Received: 06/22/2024 0900 [place] First Screen: MARLENA Bhatti Specimen: Pap Test 07/02/2024 7:49 AM FUR WEIGHER [facility] General Categorization Negative for Intraepithelial Lesion or Malignancy 07/02/2024 7:49 AM FUR WEIGHER [facility] Interpretation Negative for intraepithelial lesion or malignancy 07/02/2024 7:49 AM FUR WEIGHER [facility] at 0749 FUR WEIGHER Specimen Adequacy Satisfactory for evaluation, endocervical/velazco sformation zone component present 07/02/2024 7:49 AM FUR WEIGHER [facility] LMP 06/11/2024 07/02/2024 7:49 AM FUR WEIGHER [facility] Swab Non-blood Collection / Unknown 06/21/2024 3:51 PM FUR WEIGHER 06/22/2024 9:00 AM FUR WEIGHER us Eleanor PHILLIPS LAB CYTOLOGY ORDERABLES Final Result [facility] [address] [address] * (ABNORMAL) Hemoglobin A1c (06/21/2024 11:16 AM FUR WEIGHER) Hemoglobin A1c 7.9(H) % 06/22/2024 7:57 AM FUR WEIGHER [facility] Estimated Average Glucose 180 mg/dL 06/22/2024 7:57 AM FUR WEIGHER [facility] Blood Venous blood specimen / Unknown Venipuncture / Unknown 06/21/2024 11:16 AM FUR WEIGHER 06/21/2024 3:48 PM FUR WEIGHER Narrative [facility] - 06/22/2024 7:57 AM FUR WEIGHER HgbA1C ranges recommended by the [place] Diabetes Association (ADA): >6.5% Diabetic 5.7-6.4% Pre-Diabetic <5.7% Non-Diabetic Eleanor Lugo [facility] LAB BLOOD ORDERABLES Final Re sult Performing Organization Address [facility] de Phone Number [facility] [address] [address] from Last 3 Months or Most Recently Relevant to Health Maintenance [facility] Advance Directives For more information, please contact: [phone] (7:30 AM - 5PM [facility]/[place], 7 days a week) * Full Code (Latest Code Status on File) Date Activated Date Inactivated Comments 10/20/2022 6:40 AM 10/20/2022 11:20 AM Care Teams Agricultural Produce Commission Agent Relationship Specialty Start Date End Date Berta Blue FNP [address] [place] [address] PCP - General 01/14/25 Eleanor Lugo FNP [address] [place] [address] [facility] Med Onc Original Referring Provider Family Medicine 07/31/24 Barrett Jamil MD [address] [place] [address] Medical Oncologist Oncology 07/31/24 William Guan FNP [address] [address] Nurse Practitioner Oncology 07/31/24 Zenobia Gonzalez AOCNP [address] [address] Nurse Practitioner Oncology 07/31/24
--- OUTSIDE RECORDS SUMMARY | 2025-05-07 16:36 | XMS_ITS | Encounter Summary ---
Author Organization [facility] Address [address] [place] [address] Phone Care Team Providers Care Med Dir Name Role Phone Eleanor Lugo SPOOL TENDER Unavailable Barrett Jamil MD Unavailable Leatha vailable William Guan SPOOL TENDER Unavailable [phone] Zenobia [facility] Unavailable [phone] August SPOOL TENDER Primary Care Provider [phone] Reason for Visit * Reason Comments Med Refill Encounter Details Date Type Department Care Team (Late st Contact Info) Description 01/28/2025 Refill [facility] [address] [place] [address] Eleanor Lugo [facility] [address] [place] [address] Social History Tobacco Use Types Packs/Day Years [...] from your doctor or pharmacy? Sometimes 08/12/2024 [facility] Utilities Answer Date Recorded In the past 12 months has th e electric, gas, oil, or water [employer] threatened to shut off services in your [...] Never 08/12/2024 How often do you attend islam or sikhism serv ices? Never 08/12/2024 Do you belong to any clubs o r organizations such as islam groups, unions, fraternal or athletic groups, or [...] Recorded Patient Health Questionnaire-2 Score 0 10/03/2024 [facility] [place] of Occupat ional Health - Occupational Stress [...] any time in the past 12 m [facility], were you homeless or living in a longterm (including now)? No 08/12/2024 [facility] - Mental Health Answer Date Recorde d [...] on filedocumented in this encounter Care Teams Med Dir Relationship Specialty Start Date End Date August, [facility] [address] [place] [id number] PCP - General 01/14/25 Eleanor Lugo FNP [address] [place] [address] [facility] Med Onc Original Referring Provider Family Medicine 07/31/24 Barrett Jamil MD [address] [place] [address] Medical Oncologist Oncology 07/31/24 William Guan FNP [address] [address] Nurse Practitioner Oncology 07/31/24 Zenobia Gonzalez AOCNP [address] [address] Nurse Practitioner Oncology 07/31/24 documented as of this encounter
--- OUTSIDE RECORDS SUMMARY | 2025-05-07 16:36 | XMS_ITS | Encounter Summary ---
Author Organization [facility] Address [address] [place] [address] Care Team Providers Care Prop And Effects Designer Name Role Phone Tiffani Mcneill Primary Care Provider [phone] Encounter Details Date Type Department Care Team (Late Contact Info) Description 05/07/2025 External Device Data [facility] ABSTRACTION Provider, Abstract NO ADDRESS ON FILE Social History Tobacco Use Types Packs/Day Years Used Date Smoking Tobacco: Every Day Cigarettes Passive Smoke Exposure: Current Smokeless Tobacco: Never Alcohol Use Standard Drinks/Week Comments No 0 (1 standard drink = 0.6 oz pur e alcohol) Comments Unknown Sex and Gender Information Value Date Recorded Sex Assigned at Not on file Legal Sex Female 9:16 AM HYPERBARIC NURSE Gender Identity Not on file Sexual Orientation Not on file documented as of this encounter Plan of Treatment Upcoming Encounters Date Type Department Care Team ([facility] Contact Info) Description 05/30/2025 3:00 PM HYPERBARIC NURSE Office Visit [facility] Family Medicine [place] [address] [place] [phone] August, CELLOPHANE TESTER [address] [place] [phone] 07/16/2025 11:[address] [facility] Neurology [facility] [address] [place] [phone] Hector Trent MD [address] [place] [address] documented as of this encounter Visit Diagnoses Not on filedocumented in this encounter Care Teams Prop And Effects Designer Relationship Specialty Start Date End Date Tiffani Mcneill DO [address] [place] [address] PCP - General Family Practice 04/08/10 documented as of this encounter
--- OUTSIDE RECORDS SUMMARY | 2025-05-07 16:36 | XMS_ITS | Clinical Summary ---
Author Organization [facility] tone Address [address] [place] [address] Care Team Providers Care Order Booker Name Role Phone Tiffani Mcneill DO Primary Care Provider Allergies Active Allergy Reactions Criticality Noted Date Comments Codeine Nausea and Vomiting Low 03/21/2008 Nitrofurantoin Monohyd/M-Cryst Rash Low 03/21/2008 Penicillins Other (See Comments) Low 03/21/2008 Says got thrush Trazodone Headache Low 03/21/2008 Medications ranitidine (ZANTAC) 150 mg Oral tabletIndication s:PUD (peptic ulcer disease) Take 1 Tab by mouth 2 times daily. 60 Tab 12 02/08/2013 Active citalopram (CeleXA) 10 mg tablet Take 10 mg by mouth daily. Active lurasidone (LATUDA) 40 mg Tablet tablet Take by mouth daily. Active prazosin (MINIPRESS) 1 mg capsule Take 1 mg by mouth daily at bedtime. Active clonazePAM (KlonoPIN) 0.5 mg Tablet Take 0.5 mg by mouth 1 time daily as needed for Anxiety. Active ibuprofen (MOTRIN) 600 mg tablet Take 600 mg by mouth every 8 hours as needed for Pain, Mild. Active cyclobenzaprine (FLEXERIL) 5 mg Tablet Take 5 mg by mouth 2 times daily as needed for Spasm. Active Active Problems Problem Noted Date Diagnosed Date GERD (gastroesophageal reflux disease) 2 IUD complication 05/14/2010 Carpal tunnel syndrome 01/21/2010 Sciatica 01/16/2010 Coccyx pain 01/16/2010 MTHFR Mutation: Compound Heterozygote 03/28/2008 Depression with anxiety 03/21/2008 Resolved Problems Problem Noted Date Diagnosed Date Resolved Date Supervision of normal first 03/21/2008 11/21/2008 Immunizations Immunization Administration Dates Next Due (ADACEL/BOOSTRIX)(10 [...] Date Smoking Tobacco: Every Day Cigarettes 0.5 8 Smokeless Tobacco: Never Tobacco Cessation:Ready to Q uit: No; Counseling Given: Yes Alcohol Use Standard Drinks/Week Comments No 0 (1 standard drink = 0.6 oz pur e alcohol) Comments No Sex and Gender Information Value Date Recorded Sex Assigned at Not on file Legal Sex Female 5:54 AM HEMOTHERAPIST Gender Identity Not on file Sexual Orientation Not on file Occupation Industry Job Start Date Job End Date Not on file Not on file Not on file Not on file Last Filed Vital Signs Vital Sign Reading Time Taken Comments Blood Pressure 124/77 10/21/2016 1:50 PM CDT Pulse 71 10/21/2016 1:50 PM CDT Temperature 36.6 C (97.8 F) 10/26/2013 9:49 PM CDT Respiratory Rate 18 10/26/2013 9:49 PM CDT Oxygen Saturation 99% 10/26/2013 9:49 PM CDT Inhaled Oxygen Concentration - - Weight 75.8 kg (167 lb) 10/21/2016 1:50 PM CDT Height 165.1 cm (5' 5 ) 10/21/2016 1:50 PM CDT Body Mass Index 27.79 10/21/2016 1:50 PM CDT Plan of Treatment Health Maintenance Due Date Last Done Comments DIABETES ANNUAL FOOT EXAM 2001 DIABETES ANNUAL RETINAL EXAM 2001 DIABETES HBA1C Q 6 MONTHS 2001 DIABETES MICROALBUMIN ANNUAL SCREEN 2001 LDL CHOLESTEROL ANNUAL 2001 HEPATITIS B VACCINES (1 of 3 - 19+ 3-dose series) 2002 HPV/Cotest (21-29) 2004 Preventative Visit-Managed Medicaid 08/21/2008 08/21/2007 HPV VACCINES (3 - 3-dose series) 04/21/2010 01/28/20 10, 12/03/2008 CERVICAL CANCER SCREENING 2013 HPV/Cotest (30-65) 2013 PAP SMEAR 2013 03/20/2009, 03/21/2008 BREAST CANCER SCREENING 2023 DTAP/TDAP/TD VACCINES (7 - T d or Tdap) 10/27/2023 10/26/2013, 03/17/1999, 11/23/1988, Additional history exists INFLUENZA VACCINE (#1) 2024 03/21/2008 Procedures Procedure Name Priority Date/Time Associated Diagnosis Comments CERV/VAG CYTOPATH, THIN PREP Routine 03/20/2009 3:35 PM HEMOTHERAPIST from Last 3 Months or Most Recently Relevant to Health Maintenance Results * CERVICAL OR VAGINAL CYTOPATH, THIN PREP (03/20/2009 3:35 PM HEMOTHERAPIST) PATHOLOGY/CYT OLOGY REPORT [facility] [address] [facility] [address] Patient: JACQUIE ROME Accn No: [id number] , [id number] Collected: 03/20/2009 3:35:00 PM CYTOLOGY CAFETERIA SERVER FINAL REPORT - - THIN PREP PAP History Specimen Source: Endocervical LMP: Hormones/Contracep tives Last Pap Date: None Provided Specimen Adequacy Satisfactory for interpretation. The smear lacks endocervical or metaplastic cells. Diagnosis NEGATIVE FOR INTRAEPITHELIAL LESION OR MALIGNANCY. (Previously noted as Within Normal Limits) Punch Finisher/ Pathologist: 04/02/09 Completed by: PAULA RODNEY (Electronically signed by) 04/02/09 Comment Repeat Pap smear within 6-12 months. Important Info About PAP Smears HPV Testing off the Thin Prep vial can be done as a means of further evaluating the significance of a Thin Prep Report. For information about ordering the HPV test phone Cytology at . Treatment or follow-up recommendations (if any) that are contained within this report are based upon general recommendations as contained in 2001 Consensus Guidelines For Cervical Cytological Abnormalities SHANE: August 30, 2001, and are provided as a general guideline rather than as a specific recommendation. Final decisions about the most appropriate treatment and follow-up should be made on an individualized basis by the treating physician in consultation with his/her patient. [facility] 03/20/2009 3:3 5 PM HEMOTHERAPIST us Rodri Pop SPA CONCIERGE PATHOLOGY/CYTOLOGY ORDERABLES Edited INTERFACE SYSTEM Refer to clinic/hospital department [facility] CLIA# [id number] [address] [place] [address] from Last 3 Months or Most Recently Relevant to Health Maintenance Insurance [employer] [place]ICA[place] Care Teams Order Booker Relationship Specialty Start Date End Date Tiffani Mcneill DO [address] [facility] [place] [address] PCP - General Family Practice 04/08/10
--- OUTSIDE RECORDS SUMMARY | 2025-05-07 16:37 | XMS_ITS | Encounter Summary ---
Author Organization [facility] Address [address] [place] [address] Care Team Providers Care Gun Profiler Name Role Phone Tiffani Mcneill DO Primary Care Provider Encounter Details Date Type Department Care Team (Latest Contact Info) Description 03/14/2002 Outpatient Historical [facility] [address] [place] [phone] Cali Moore DO NO ADDRESS ON FILE Pediculus capitis (Primary Dx) Social History Tobacco Use Types Packs/Day Years Used Date Smoking Tobacco: Never Assessed Comments Unknown Sex and Gender Information Value Date Recorded Sex Assigned at Not on file Legal Sex Female 5:54 AM PASTOR Gender Identity Not on file Sexual Orientation Not on file documented as of this encounter Plan of Treatment Not on file documented as of this encounter Visit Diagnoses Diagnosis Pediculus capitis- Primary Pediculus capitis (head louse) documented in this encounter Care Teams Gun Profiler Relationship Specialty Start Date End Date Tiffani Mcneill DO [address] [place] [address] PCP - General Family Practice 04/08/10 documented as of this encounter
--- OUTSIDE RECORDS SUMMARY | 2025-05-07 16:37 | XMS_ITS | Encounter Summary ---
Author Organization [facility] Address [address] [place] [address] Care Team Providers Care Pastry Mixer Name Role Phone Tiffani Mcneill DO Primary Care Provider Encounter Details Date Type Department Care Team (Late st Contact Info) Description 08/14/2007 Outpatient Historical [facility] [address] [place] [address] Martha Benjamin, KNOCKUP WORKER NO ADDRESS ON FILE Social History Tobacco Use Types Packs/Day Years Used Date Smoking Tobacco: Never Assessed Comments Unknown Sex and Gender Information Value Date Recorded Sex Assigned at Not on file Legal Sex Female 5:54 AM GROUND SUPPORT EQUIPMENT MECHANIC Gender Identity Not on file Sexual Orientation Not on file documented as of this encounter Plan of Treatment Not on file documented as of this encounter Procedures Procedure Name Priority Date/Time Associated Diagnosis Comments MRI KNEE WO CONTRAST LEFT Routine 08/14/2007 2:05 PM CDT documented in this encounter Results * MRI KNEE WO CONTRAST LEFT (08/14/2007 2:05 PM CDT) Anatomical Region Laterality Modality Lower Extremity Other 08/14/2007 2:05 PM CDT Narrative 08/14/2007 3:42 PM CDT Exam: MRI - Knee Lt w/o Date/Time of Exam: Aug 14, 2007 2:05:43 PM History: pain. Technique: MRI of the left knee was performed utilizing a 1.5 Francesca magnet. Findings: There is subtle irregularity at the apex of the body of the lateral meniscus. No definite medial meniscal abnormality seen. Cruciate ligaments are intact. There is grade 2 MCL injury. There are findings suggestive of injury to the medial patellofemoral ligament as well. Lateral collateral ligament complex is intact. Extensor tendons are intact. Normal amount of joint fluid is present. Very tiny popliteal cyst is present. Impression: Grade 2 MCL strain with injury of the medial patellofemoral ligament. Apical fraying of the body of the lateral meniscus. - Dictated By: Gregorio Reyes M.D. Electronically Signed By: Gregorio Reyes M.D. Date Signed: 08/14/07 [facility] Procedure Note Gregorio Reyes E - 08/14/2007 Exam: MRI - Knee Lt w/o Date/Time of Exam: Aug 14, 2007 2:05:43 PM History: pain. Technique: MRI of the left knee was performed utilizing a 1.5 Teslamagnet. Findings: There is subtle irregularity at the apex of the body of thelateral meniscus. No definite medial meniscal abnormality seen. Cruciate ligaments are intact. There isgrade 2 MCL injury. There are findings suggestive of injury to the medial patellofemoral ligament aswell. Lateral collateral ligament complex is intact. Extensor tendons are intact. Normal amount of jointfluid is present. Very tiny popliteal cyst is present. Impression: Grade 2 MCL strain with injury of the medial patellofemoralligament. Apical fraying of the body of the lateral meniscus. - Dictated By: Gregorio Reyes M.D. Electronically Signed By: Gregorio Reyes M.D. Date Signed: 08/14/[address] [facility] [address] [facility] MR ORDERABLES Final Result documented in this encounter Visit Diagnoses Not on filedocumented in this encounter Care Teams Pastry Mixer Relationship Specialty Start Date End Date Tiffani Mcneill DO [address] [place] [address] PCP - General Family Practice 04/08/10 documented as of this encounter
--- OUTSIDE RECORDS SUMMARY | 2025-05-07 16:37 | XMS_ITS | Encounter Summary ---
Author Organization [facility] Address [address] [place] [address] Care Team Providers Care Machine Tester Name Role Phone Tiffani Mcneill DO Primary Care Provider Encounter Details Date Type Department Care Team (Late st Contact Info) Description 10/09/2007 Outpatient Historical [facility] MRI [address] [place] [address] Noe Yun MD NO ADDRESS ON FILE Social History Tobacco Use Types Packs/Day Years Used Date Smoking Tobacco: Never Assessed Comments Unknown Sex and Gender Information Value Date Recorded Sex Assigned at Not on file Legal Sex Female 5:54 AM HRIS MANAGER Gender Identity Not on file Sexual Orientation Not on file documented as of this encounter Plan of Treatment Not on file documented as of this encounter Procedures Procedure Name Priority Date/Time Associated Diagnosis Comments MRI KNEE WO CONTRAST LEFT Routine 10/09/2007 11:02 AM CDT documented in this encounter Results * MRI KNEE WO CONTRAST LEFT (10/09/2007 11:02 AM CDT) Anatomical Region Laterality Modality Lower Extremity Other 10/09/2007 11:0 2 AM CDT Narrative 10/09/2007 11:02 AM CDT Exam: MRI - Knee LT w/o Date/Time of Exam: Oct 09, 2007 11:02:00 AM History: pain. Technique: Proton density sagittal, T1 coronal, T2 fat-sat sagittal and axial, STIR coronal. Comparison: MRI left knee 08/14/2007. Findings: The ACL, PCL, and LCL complex are intact. A physiologic joint effusion is present. No popliteal cyst is identified. The extensor mechanism is intact. Thickening and intrinsic intermediate signal abnormality on T1 and fluid sensitive sequences involving the femoral aspect of the superficial band of the medial collateral ligaments is identified. Focal contusion/microtrabeculae fracture involving the anterior aspect of the lateral femoral condyle is identified. An additional contusion/microtrabeculae fracture involving the posterior aspect of the nonweightbearing portion of the lateral femoral condyle this is identified. No unequivocal grade III meniscal signal to suggest a definite arthroscopically visible meniscal tear is seen. Persistent medial displacement of the anterior aspect of the femoral portion of the superficial band of the medial collateral ligaments by edema deep to the superficial band of the medial collateral ligament is again noted. Impression: 1. Improvement in the grade II sprain of the medial collateral ligament when compared to the 08/14/2007 exam. 2. Interval development of contusion/microtrabeculae fractures of the lateral femoral condyle as described above. - Dictated By: Tree Colunga M.D. Electronically Signed By: Tree Colunga M.D. Date Signed: 10/09/07 [facility] Procedure Note Rosalba Colunga - 10/09/2007 Exam: MRI - Knee LT w/o Date/Time of Exam: Oct 09, 2007 11:02:00 AM History: pain. Technique: Proton density sagittal, T1 coronal, T2 fat-sat sagittal andaxial, STIR coronal. Comparison: MRI left knee 08/14/2007. Findings: The ACL, PCL, and LCL complex are intact. A physiologic jointeffusion is present. No popliteal cyst is identified. The extensor mechanism is intact. Thickening andintrinsic intermediate signal abnormality on T1 and fluid sensitive sequences involving the femoralaspect of the superficial band of the medial collateral ligaments is identified. Focalcontusion/microtrabeculae fracture involving the anterior aspect of the lateral femoral condyle is identified. Anadditional contusion/microtrabeculae fracture involving the posterior aspect of the nonweightbearing portion ofthe lateral femoral condyle this is identified. No unequivocal grade III meniscal signal to suggest adefinite arthroscopically visible meniscal tear is seen. Persistent medial displacement of theanterior aspect of the femoral portion of the superficial band of the medial collateral ligaments byedema deep to the superficial band of the medial collateral ligament is again noted. Impression: 1. Improvement in the grade II sprain of the medial collateral ligamentwhen compared to the 08/14/2007 exam. 2. Interval development of contusion/microtrabeculae fractures of thelateral femoral condyle as described above. - Dictated By: Tree Colunga M.D. Electronically Signed By: Tree Colunga M.D. Date Signed: 10/09/07 [facility] us Noe Yun MD MR ORDERABLES Final Result documented in this encounter Visit Diagnoses Not on filedocumented in this encounter Care Teams Machine Tester Relationship Specialty Start Date End Date Tiffani Mcneill DO [address] [place] [address] PCP - General Family Practice 04/08/10 documented as of this encounter
--- OUTSIDE RECORDS SUMMARY | 2025-05-07 16:37 | XMS_ITS | Encounter Summary ---
Author Organization [facility] Address [address] [facility] Attn: [place] [address] Care Team Providers Care Clinical Case Manager Name Role Phone Tiffani Mcneill Primary Care Provider Encounter Details Date Type Department Care Team (Late st Contact Info) Description 08/22/2007 Outpatient Historical Martha Benjamin, MAGNETO ELECTRICIAN NO ADDRESS ON FILE Routine Gynecological Examination Social History Tobacco Use Types Packs/Day Years Used Date Smoking Tobacco: Never Assessed Comments Unknown Sex and Gender Information Value Date Recorded Sex Assigned at Not on file Legal Sex Female 5:54 AM PLAYROOM ATTENDANT Gender Identity Not on file Sexual Orientation Not on file documented as of this encounter Plan of Treatment Not on file documented as of this encounter Procedures Procedure Name Priority Date/Time Associated Diagnosis Comments PATHOLOGY Routine 08/21/2007 5:16 AM CDT documented in this encounter Results * PATHOLOGY (08/21/2007 5:16 AM CDT) PATHOLOGY/CY TOLOGY REPORT [facility] Anatomic Pathology Dept [address] [place] [address] Patient: JACQUIE ROME Accn No: [id number] Collected: 08/21/2007 5:16:00 AM CYTOLOGY TIP OUT WORKER FINAL REPORT - - BED AND BREAKFAST COOK PAP History Specimen Source: Endocervical/Cervic al vaginal LMP: 08/17/07 Last Pap Date: 2007 V72.31 Specimen Adequacy Satisfactory for interpretation. The smear shows sufficient numbers of endocervical or metaplastic cells. Diagnosis NEGATIVE FOR INTRAEPITHELIAL LESION OR MALIGNANCY. (Previously noted as Within Normal Limits) Infant Lead Teacher MYESHA BARGER 08/22/07 Completed by: ALVERTO CONNER BSMARLENA (ASCP) (Electronically signed by) 08/22/07 Comment Routine follow-up is suggested. Important Info [...] in consultation with his/her patient. INTERFACE SYSTEM 08/21/2007 5:16 AM CDT us Martha Benjamin MAGNETO ELECTRICIAN PATHOLOGY/CYTOLOGY ORDERABLE S Final Result INTERFACE SYSTEM Refer to clinic/hospital department documented in this encounter Visit Diagnoses Diagnosis Routine gynecological examination documented in this encounter Care Teams Clinical Case Manager Relationship Specialty Start Date End Date Tiffani Mcneill DO [address] [place] [address] PCP - General Family Practice 04/08/10 documented as of this encounter
--- OUTSIDE RECORDS SUMMARY | 2025-05-07 16:37 | XMS_ITS | Encounter Summary ---
Author Organization [facility] Address [address] [place] [address] Care Team Providers Care Ict Security Specialist Name Role Phone Tiffani Mcneill DO Primary Care Provider Encounter Details Date Type Department Care Team (Latest Contact Info) Description 11/25/2002 Outpatient Historical [facility] [address] [place] [address] AMBULANCE, [facility] SYNCOPE AND COLLAPSE (Primary Dx) Social History Tobacco Use Types Packs/Day Years Used Date Smoking Tobacco: Never Assessed Comments Unknown Sex and Gender Information Value Date Recorded Sex Assigned at Not on file Legal Sex Female 5:54 AM ALFALFA DEHYDRATOR OPERATOR Gender Identity Not on file Sexual Orientation Not on file documented as of this encounter Plan of Treatment Not on file documented as of this encounter Visit Diagnoses Diagnosis Syncope and collapse- Primary documented in this encounter Care Teams Ict Security Specialist Relationship Specialty Start Date End Date Tiffani Mcneill DO [address] [place] [address] PCP - General Family Practice 04/08/10 documented as of this encounter
--- OUTSIDE RECORDS SUMMARY | 2025-05-07 16:37 | XMS_ITS | Encounter Summary ---
Author Organization [facility] Address [address] [place] [address] Care Team Providers Care Bag Machine Operator Helper Name Role Phone Tiffani Mcneill DO Primary Care Provider Encounter Details Date Type Department Care Team (Late st Contact Info) Description 07/04/2007 Outpatient Historical [facility] [address] [place] [address] AMBULANCE, [facility] Social History Tobacco Use Types Packs/Day Years Used Date Smoking Tobacco: Never Assessed Comments Unknown Sex and Gender Information Value Date Recorded Sex Assigned at Not on file Legal Sex Female 5:54 AM GLASS SANDER Gender Identity Not on file Sexual Orientation Not on file documented as of this encounter Plan of Treatment Not on file documented as of this encounter Visit Diagnoses Not on filedocumented in this encounter Care Teams Bag Machine Operator Helper Relationship Specialty Start Date End Date Tiffani Mcneill DO [address] [place] [address] PCP - General Family Practice 04/08/10 documented as of this encounter
--- OUTSIDE RECORDS SUMMARY | 2025-05-07 16:37 | XMS_ITS | Encounter Summary ---
Author Organization [facility] Address [address] [place] [address] Care Team Providers Care Plate Furnace Operator Name Role Phone Tiffani Mcneill DO Primary Care Provider Encounter Details Date Type Department Care Team (Late st Contact Info) Description 06/09/2007 Outpatient Historical [facility] [place] [facility] [address] [place] [address] AMBULANCE, [facility] Social History Tobacco Use Types Packs/Day Years Used Date Smoking Tobacco: Never Assessed Comments Unknown Sex and Gender Information Value Date Recorded Sex Assigned at Not on file Legal Sex Female 5:54 AM AUTOMATION TEST DEVELOPER Gender Identity Not on file Sexual Orientation Not on file documented as of this encounter Plan of Treatment Not on file documented as of this encounter Visit Diagnoses Not on filedocumented in this encounter Care Teams Plate Furnace Operator Relationship Specialty Start Date End Date Tiffani Mcneill DO [address] [place] [address] PCP - General Family Practice 04/08/10 documented as of this encounter
--- OUTSIDE RECORDS SUMMARY | 2025-05-07 16:37 | XMS_ITS | Encounter Summary ---
Author Organization [facility] Address [address] [place] [address] Care Team Providers Care Commercial Insurance Underwriter Name Role Phone Tiffani Mcneill DO Primary Care Provider Encounter Details Date Type Department Care Team (Latest Contact Info) Description 08/21/2007 Outpatient Historical [facility] Martha Reddy, SIGNING TEACHER NO ADDRESS ON FILE Routine Gynecological Examination Social History Tobacco Use Types Packs/Day Years Used Date Smoking Tobacco: Never Assessed Comments Unknown Sex and Gender Information Value Date Recorded Sex Assigned at Not on file Legal Sex Female 5:54 AM SCRAP CHARGER Gender Identity Not on file Sexual Orientation Not on file documented as of this encounter Plan of Treatment Not on file documented as of this encounter Visit Diagnoses Diagnosis Routine gynecological examination documented in this encounter Care Teams Commercial Insurance Underwriter Relationship Specialty Start Date End Date Tiffani Mcneill DO [address] [place] [address] PCP - General Family Practice 04/08/10 documented as of this encounter
--- OUTSIDE RECORDS SUMMARY | 2025-05-07 16:37 | XMS_ITS | Encounter Summary ---
Author Organization [facility] Address [address] [place] [address] Care Team Providers Care Multiple Coil Winder Name Role Phone Tiffani Mcneill DO Primary Care Provider Encounter Details Date Type Department Care Team (Late st Contact Info) Description 04/27/2002 Emergency [facility] Emergency Department [address] [place] [address] Flaquita Domingo MD [address] [facility] [address] [place] [address] HEAD INJURY UNSPECIFIED (Primary Dx) Social History Tobacco Use Types Packs/Day Years Used Date Smoking Tobacco: Never Assessed Comments Unknown Sex and Gender Information Value Date Recorded Sex Assigned at Not on file Legal Sex Female 5:54 AM B2B APPOINTMENT SETTER Gender Identity Not on file Sexual Orientation Not on file documented as of this encounter Plan of Treatment Not on file documented as of this encounter Visit Diagnoses Diagnosis Head injury, unspecified- Primary documented in this encounter Care Teams Multiple Coil Winder Relationship Specialty Start Date End Date Tiffani Mcneill DO [address] [place] [address] PCP - General Family Practice 04/08/10 documented as of this encounter
--- OUTSIDE RECORDS SUMMARY | 2025-05-07 16:37 | XMS_ITS | Encounter Summary ---
Author Organization [facility] Address [address] [place] [address] Care Team Providers Care Legal Support Specialist Name Role Phone Tiffani Mcneill DO Primary Care Provider [phone] Encounter Details Date Type Department Care Team (Latest Contact Info) Description 03/26/[address] [facility] ([place], [place]) [address] [place] [phone] Cali Moore DO NO ADDRESS ON FILE ACUTE SINUSITIS NOS (Primary Dx); URIN TRACT INFECTION NOS Social History Tobacco Use Types Packs/Day Years Used Date Smoking Tobacco: Never Assessed Comments Unknown Sex and Gender Information Value Date Recorded Sex Assigned at Not on file Legal Sex Female 5:54 AM MEDICAL RECEPTIONIST BILLER Gender Identity Not on file Sexual Orientation Not on file documented as of this encounter Plan of Treatment Not on file documented as of this encounter Visit Diagnoses Diagnosis Acute sinusitis, unspecified- Primary Urinary tract infection, site not specified documented in this encounter Care Teams Legal Support Specialist Relationship Specialty Start Date End Date Tiffani Mcneill DO [address] [place] [address] PCP - General Family Practice 04/08/10 documented as of this encounter
--- OUTSIDE RECORDS SUMMARY | 2025-05-07 16:37 | XMS_ITS | Encounter Summary ---
Author Organization [facility] Address [address] [place] [address] Care Team Providers Care Customer Retention Specialist Name Role Phone Tiffani Mcneill DO Primary Care Provider Encounter Details Date Type Department Care Team (Latest Contact Info) Description 03/15/2002 Outpatient Historical [facility] [address] 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
--- OUTSIDE RECORDS SUMMARY | 2025-05-07 16:37 | XMS_ITS | Encounter Summary ---
Author Organization [facility] Address [address] [place] [address] Care Team Providers Care Special Event Assistant Name Role Phone Tiffani Mcneill DO Primary Care Provider Encounter Details Date Type Department Care Team (Late st Contact Info) Description 12/04/2007 Outpatient Historical [facility] Martha Reddy, DISTRICT CUSTOMS DIRECTOR NO ADDRESS ON FILE Other Effects of External Causes Social History Tobacco Use Types Packs/Day Years Used Date Smoking Tobacco: Never Assessed Comments Unknown Sex and Gender Information Value Date Recorded Sex Assigned at Not on file 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 Comment: HCV antibody testing is performed by enhanced chemiluminescence immunoassay methodology. The CDC recommends that positive HCV antibody tests be confirmed with either RIBA (recombinant immunoblot assay) or PCR testing. The same specimen can be used for RIBA testing and will be held for 7 days. Please contact the Chemistry laboratory if RIBA testing is desired. Blood specimen (specimen) 12/04/2007 11:39 AM CDT 12/04/2007 9:55 PM CDT us Martha Benjamin DISTRICT CUSTOMS DIRECTOR CHEMISTRY ORDERABLES Final R esult [facility] CLIA# [id number] [address] [place] [address] documented in this encounter Visit Diagnoses Diagnosis Other effects of external causes documented in this encounter Care Teams Special Event Assistant Relationship Specialty Start Date End Date Tiffani Mcneill DO [address] [place] [address] PCP - General Family Practice 04/08/10 documented as of this encounter
--- OUTSIDE RECORDS SUMMARY | 2025-05-07 16:37 | XMS_ITS | Encounter Summary ---
Author Organization [facility] Address [address] [place] [address] Care Team Providers Care Biztalk Software Developer Name Role Phone Tiffani Mcneill DO Primary Care Provider [phone] Encounter Details Date Type Department Care Team (Latest Contact Info) Description 05/07/2002 Outpatient Historical [facility] [place] [address] [facility] [address] [place] [phone] Apolinar Avalos MD [address] [phone] ACUTE SINUSITIS NOS (Primary Dx); ACUTE PHARYNGITIS; Irregular menstruation Social History Tobacco Use Types Packs/Day Years Used Date Smoking Tobacco: Never Assessed Comments Unknown Sex and Gender Information Value Date Recorded Sex Assigned at Not on file Legal Sex Female 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
--- NOTE | 2025-05-07 17:20 | W.ED.EXTPRO ---
HPI - Extremity Problem General: Chief complaint: Extremity Injury, Lower Stated complaint: dislocation Lt knee cap History of Present Illness: 39-year-old female presents emergency room complaining of having dislocated her kneecap. She states she was waking up she stretched her leg and felt like her knee dislocated. She said she grabbed out it and thought she had reduced it. She was brought in by EMS was given fentanyl and route. She states she has had a history of this happen in the past. No direct trauma she was not standing at the time. No other injuries or complaints. Related Data Home Medications ?Medication ?Instructions ?Recorded ?Confirmed atorvastatin 20 mg tablet (Lipitor) 20 mg PO DAILY 03/11/25 05/03/25 baclofen 10 mg tablet 10 mg PO TID PRN 03/11/25 05/03/25 celecoxib 100 mg capsule 100 mg PO BID 03/11/25 05/03/25 cetirizine 10 mg tablet (All Day 10 mg PO DAILY PRN 03/11/25 05/03/25 Allergy (cetirizine)) dicyclomine 20 mg tablet 20 mg PO TID 03/11/25 05/03/25 famotidine 20 mg tablet 20 mg PO BID 03/11/25 05/03/25 fluticasone furoate 50 inhalation DAILY 03/11/25 05/03/25 mcg/actuation blister powder for inhalation gabapentin 600 mg tablet 600 mg PO TID 03/11/25 05/03/25 hydroxyzine pamoate 25 mg capsule 25 mg PO TID PRN 03/11/25 05/03/25 (Vistaril) lamotrigine 100 mg tablet,extended 100 mg PO DAILY PRN 03/11/25 05/03/25 release 24 hr norethindrone (contraceptive) 0.35 0.35 mg PO DAILY 03/11/25 05/03/25 mg tablet (Dee-BE) omeprazole 20 mg capsule,delayed 20 mg PO BID 03/11/25 05/03/25 release ondansetron HCl 4 mg tablet 4 mg PO Q8H 03/11/25 05/03/25 semaglutide 1 mg/dose (4 mg/3 mL) mg SUBCUT .Weekly 03/11/25 05/03/25 subcutaneous pen injector (Ozempic) topiramate 50 mg tablet 50 mg PO BID 03/11/25 05/03/25 Allergies Allergy/AdvReac Type Severity Reaction Status Date / Time codeine Allergy Mild VOMITING Verified 05/03/25 11:04 nitrofurantoin (From Allergy Mild BLISTERS Verified 05/03/25 11:04 Macrobid) Penicillins Allergy Mild THRUSH Verified 05/03/25 11:04 trazodone Allergy Mild MIGRAINES Verified 05/03/25 11:04 PFSH ED PFSH: Medical History Psychiatric care Trigger finger, right middle finger Finger mass, right Physical Exam Extremity: OTHER: Examination of the left knee there is no obvious deformity. Patella is in the midline. There is no edema no joint effusion. Patient cannot tolerate further exam Course Vital Signs: Vital signs: Vital Signs Temperature 97.8 F 05/07/25 16:33 Pulse Rate 79 05/07/25 17:29 Respiratory Rate 18 05/07/25 16:33 Blood Pressure 106/71 05/07/25 17:29 Pulse Oximetry 98 05/07/25 17:29 Oxygen Delivery Me thod Room Air 05/07/25 16:33 MDM - Extremity (Nontraumatic) Medical Decision Making Patient reports dislocation of the patella she has had this in the past. There is no swelling edema or joint effusion at this point Limited exam due to patient discomfort. Will place her in a knee immobilizer x-ray was done reviewed by myself there is no acute fracture there is evidence of a previous lateral collateral ligament repair. Will discharge patient home in knee immobilizer and crutches ice elevate and refer her to orthopedics. Medical Records I reviewed the patient's medical records. Lab Data Radiology Impressions Knee X-Ray 05/07/25 16:19 IMPRESSION: 1. Patellar alignment appears appropriate on the provided views. 2. Small ossific fragment adjacent to the medial femoral condyle, age indeterminate and possibly related to prior injury or surgery. All radiology interpretation(s) finalized by discharge Discharge Plan Discharge Patient Disposition: Home Clinical Impression: Acute pain of left knee Condition: Stable Prescriptions: No Action topiramate 50 mg tablet 50 mg PO BID gabapentin 600 mg tablet 600 mg PO TID atorvastatin [Lipitor] 20 mg tablet 20 mg PO DAILY cetirizine [All Day Allergy (cetirizine)] 10 mg tablet 10 mg PO DAILY PRN ondansetron HCl 4 mg tablet 4 mg PO Q8H famotidine 20 mg tablet 20 mg PO BID dicyclomine 20 mg tablet 20 mg PO TID baclofen 10 mg tablet 10 mg PO TID PRN omeprazole 20 mg capsule,delayed release(DR/EC) 20 mg PO BID norethindrone (contraceptive) [Dee-BE] 0.35 mg tablet 0.35 mg PO DAILY celecoxib 100 mg capsule 100 mg PO BID hydroxyzine pamoate [Vistaril] 25 mg capsule 25 mg PO TID PRN lamotrigine 100 mg tablet extended release 24hr 100 mg PO DAILY PRN fluticasone furoate 50 mcg/actuation blister with device inhalation DAILY Ozempic 1 mg/dose (4 mg/3 mL) pen injector SUBCUT .Weekly Discharge Orders: Discharge ED (Routine); Ordered 05/07/25 Ordered By: Chano Giraldo Referrals: Blue,August, DERMATOLOGIST AND DERMATOPATHOLOGIST [Primary Care Provider, Nurse Practitioner] Discharge Diet: Usual diet Discharge Activity: Limit activity as instructed Patient Instructions: Opioid Safety, Pain Management, Patient Portal & Ingrid Instructions Activity Restrictions/Additional Instructions: Thank you for choosing [facility] for your healthcare needs today. It is very important that you follow up as instructed or that you return to the Emergency Department should you have concerns or if your condition changes or worsens in any way. Emergency department visits are focused on emergent conditions, in some cases you may require further evaluation on an outpatient basis. You are seen in the emergency room complaining of left knee pain. X-ray shows some arthritic changes and narrowing of the joint space but there was no evidence of any fracture or dislocation. Recommend using knee brace and being nonweightbearing on the left knee until you follow-up with orthopedics. Case management make arrangements for her to follow-up with the orthopedic clinic. Use your previously prescribed Celebrex or Tylenol for pain. (Please note that included in your discharge packet is information concerning opioid safety and pain management. This information is given to all patients were discharged from the ER regardless of their discharge diagnosis or the medicines they usually take or are prescribed.) Print Language: Mongolian Coding Level of Care Code ED Playground Monitor for Dalila Llamas
[2025-05-07 17:29] VITALS: BP 106/71; PULSE 79; O2SAT 98
== END 2025-05-07 18:10 | disposition home or self-care (01) ==
PROVIDERS: Emergency Provider Family Medicine
DX: M25.562 Pain in left knee (principal)
CPT/HCPCS: 73562; 96374; 99284; E0114; J1885